=== PATIENT | female | born 1985 | race Caucasian/White ===

== ENCOUNTER 2016-06-01 10:54 | Emergency (ER) | payer MEDICAID ==
[2016-06-01 11:05] VITALS: BP 97/52
[2016-06-01 11:38] LABS: CHLORIDE,CL 102 mmol/L (101-111); SODIUM,NA 137 mmol/L (135-145)
--- NOTE | 2016-06-01 11:41 | EDM.PDOC ---
ED HISTORY OF PRESENT ILLNESS - General Chief Complaint: Respiratory Problem Stated Complaint: SICK/TROUBLE BREATHING Time Seen by Provider: 06/01/16 11:18 Source of Information: Reports: Patient History Limitations: Reports: No limitations - History of Present Illness INITIAL COMMENTS - FREE TEXT/NARRATIVE: This 30 yo female patient reports to the ED with a 2 day history of increased shortness of breath. The patient reports she has had a cold for since the past weekend, but her shortness of breath got worse since last night. The patient has not been seen in the clinic and has only take Dayquill with little to no symptom relief. 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) - Related Data Allergies/ADRs: Allergies Allergy/AdvReac Type Severity Reaction Status Date / Time No Known Allergies Allergy Verified 04/03/16 15:45 Home Meds: Home Meds ClonazePAM [KlonoPIN] 1 mg PO DAILY 03/23/14 [History] FLUoxetine [PROzac] 20 mg PO DAILY 03/23/14 [History] lamoTRIgine [Lamictal] 400 mg PO DAILY 03/23/14 [History] Zolpidem Tartrate [Ambien] 10 mg PO BEDTIME PRN 04/20/14 [History] Past Medical History HEENT History: Reports: None Cardiovascular History: Reports: None Respiratory History: Reports: Bronchitis, recurrent, Other (see below) Other Respiratory History: pneumonia Gastrointestinal History: Reports: None Genitourinary History: Reports: None 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 History: Reports: Fracture Neurological History: Reports: None Psychiatric History: Reports: Anxiety, Bipolar, Depression, PTSD, Suicidal ideation Endocrine/Metabolic History: Reports: Obesity/BMI 30+ Hematologic History: Reports: None Immunologic History: Reports: None Oncologic (Cancer) History: Reports: None Dermatologic History: Reports: None - Infectious Disease History Infectious Disease History: Reports: Other (see below) Other Infectious Disease History: "staph infection" - Past Surgical History HEENT Surgical History: Reports: Other (see below) Other HEENT Surgeries/Procedures: "nasal membranes shaved down", wisdom teeth removed Cardiovascular Surgical History: Reports: None GI Surgical History: Reports: None Female Surgical History: Reports: Other (see below) Other Female Surgeries/Procedures: IUD in place Social & Family History - Family History Family Medical History: Noncontributory - Tobacco Use Smoking Status *Q: Never Smoker Second Hand Smoke Exposure: Yes - Alcohol Use Days Per Week of Alcohol Use: 0 Number of Drinks Per Day: 7 Total Drinks Per Week: 0 - Recreational Drug Use Recreational Drug Use: No Drug Use in Last 12 Months: Yes Recreational Drug Type: Reports: Marijuana/Hashish Recreational Drug Use Frequency: Socially - Living Situation & Occupation Living situation: Reports: with significant other Occupation: employed ED ROS GENERAL - Review of Systems Review Of Systems: ROS reveals no pertinent complaints other than HPI. ED EXAM, GENERAL - Physical Exam Exam: See Below Exam Limited By: No limitations General Appearance: alert, WD/WN, mild distress, obese Eye Exam: bilateral eye: EOMI, normal inspection, PERRL Ears: normal external exam, normal canal, hearing grossly normal, normal TMs Nose: normal inspection, normal mucosa, no blood Throat/Mouth: Normal inspection, Normal lips, Normal teeth, Normal gums, Normal oropharynx, Normal voice, No airway compromise Head: atraumatic, normocephalic Neck: normal inspection, supple, non-tender, full range of motion Respiratory/Chest: no respiratory distress, lungs clear, normal breath sounds, no accessory muscle use, chest non-tender, other (intermittent cough) Cardiovascular: normal peripheral pulses, regular rate, rhythm, no edema, no gallop, no JVD, no murmur, no rub GI/Abdominal: normal bowel sounds, soft, non tender, no organomegaly, no distention, no abnormal bruit, no mass (Female) Exam: Deferred Rectal (Female) Exam: Deferred Back Exam: normal inspection, full range of motion, NT Extremities: normal inspection, normal range of motion, non-tender, normal capillary refill, no pedal edema Neurological: alert, oriented, CN II-XII intact, normal cognition, normal gait, normal reflexes, no motor/sensory deficits Psychiatric: normal affect, normal mood Skin Exam: Warm, Dry, Intact, Normal color, No rash Lymphatic: no adenopathy Course - Vital Signs Last Recorded V/S: Last Vital Signs Temp 35.9 C 03/23/17 11:04 Pulse 108 H 06/01/16 11:04 Resp 20 06/01/16 11:04 BP 97/52 L 06/01/16 11:04 Pulse Ox 99 06/01/16 11:04 - Orders/Labs/Meds Orders: Active Orders 24 hr Category Date Time Status Chest 2V [CR] Urgent Exams 06/01/16 11:34 Ordered CULTURE STREP A CONFIRMATION [RM] Stat Lab 06/01/16 11:06 Results STREP SCRN A RAPID W CULT CONF [RM] Stat Lab 06/01/16 11:06 Received Labs: Laboratory Tests 06/01/16 06/01/16 06/01/16 Range/Units 11:06 11:06 11:24 WBC 7.8 (5.0-10.0) 10^3/uL RBC 4.47 (4.2-5.4) 10^6/uL Hgb 13.5 (12.0-16.0) g/dL Hct 40.1 (37.0-47.0) % MCV 89.7 (80-100) fL MCH 30.2 (27.0-34.0) pg MCHC 33.7 (33.0-35.0) g/dL Plt Count 230 (150-450) 10^3/uL Neut % (Auto) 55.1 (42.2-75.2) % Lymph % (Auto) 34.8 (20.5-50.1) % [place] % (Auto) 5.9 (2-8) % Eos % (Auto) 4.1 H (1.0-3.0) % Baso % (Auto) 0.1 (0.0-1.0) % Sodium 137 (135-145) mmol/L Potassium 3.6 (3.6-5.0) mmol/L Chloride 102 (101-111) mmol/L Carbon Dioxide 26.0 (21.0-31.0) mmol/L Anion Gap 12.6 BUN 8 (7-18) mg/dL Creatinine 0.6 (0.6-1.3) mg/dL Est Cr Clr Drug Dosing 132.11 mL/min Estimated GFR (MDRD) > 60 BUN/Creatinine Ratio 13.33 Glucose 93 (74-105) mg/dL Calcium 8.5 (8.4-10.2) mg/dl Total Bilirubin 0.4 (0.2-1.0) mg/dL AST 16 (10-42) IU/L ALT 10 (10-60) IU/L Alkaline Phosphatase 44 (42-121) IU/L Total Protein 6.9 (6.7-8.2) g/dl Albumin 3.8 (3.2-5.5) g/dl Globulin 3.1 Albumin/Globulin Ratio 1.23 Urine Color (YELLOW) Urine Appearance (CLEAR) Urine pH (5.0-9.0) Ur Specific Orange (1.005-1.030) Urine Protein (NEGATIVE) Urine Glucose (UA) (NEGATIVE) Urine Ketones (NEGATIVE) Urine Occult Blood (NEGATIVE) Urine Nitrite (NEGATIVE) Urine Bilirubin (NEGATIVE) Urine Urobilinogen (0.2-1.0) mg/dL Ur Leukocyte Esterase (NEGATIVE) Urine RBC /HPF Urine WBC (0-5/HPF) /HPF Ur Epithelial Cells /HPF Urine Bacteria (0-FEW/HPF) /HPF Urine Mucus /LPF Urine HCG, Qual Urine Opiates Screen Negative (NEGATIVE) Ur Oxycodone Screen Negative (NEGATIVE) Urine Methadone Screen Negative (NEGATIVE) Ur Barbiturates Screen Negative (NEGATIVE) U Tricyclic Antidepress Negative (NEGATIVE) Ur Phencyclidine Scrn Negative (NEGATIVE) Ur Amphetamine Screen Negative (NEGATIVE) U Methamphetamines Scrn Negative (NEGATIVE) Urine MDMA Screen Negative (NEGATIVE) U Benzodiazepines Scrn Negative (NEGATIVE) Urine Cocaine Screen Negative (NEGATIVE) U Marijuana (THC) Screen Negative (NEGATIVE) 06/01/16 06/01/16 Range/Units 11:24 11:24 WBC (5.0-10.0) 10^3/uL RBC (4.2-5.4) 10^6/uL Hgb (12.0-16.0) g/dL Hct (37.0-47.0) % MCV (80-100) fL MCH (27.0-34.0) pg MCHC (33.0-35.0) g/dL Plt Count (150-450) 10^3/uL Neut % (Auto) (42.2-75.2) % Lymph % (Auto) (20.5-50.1) % [place] % (Auto) (2-8) % Eos % (Auto) (1.0-3.0) % Baso % (Auto) (0.0-1.0) % Sodium (135-145) mmol/L Potassium (3.6-5.0) mmol/L Chloride (101-111) mmol/L Carbon Dioxide (21.0-31.0) mmol/L Anion Gap BUN (7-18) mg/dL Creatinine (0.6-1.3) mg/dL Est Cr Clr Drug Dosing mL/min Estimated GFR (MDRD) BUN/Creatinine Ratio Glucose (74-105) mg/dL Calcium (8.4-10.2) mg/dl Total Bilirubin (0.2-1.0) mg/dL AST (10-42) IU/L ALT (10-60) IU/L Alkaline Phosphatase (42-121) IU/L Total Protein (6.7-8.2) g/dl Albumin (3.2-5.5) g/dl Globulin Albumin/Globulin Ratio Urine Color Dark yellow (YELLOW) Urine Appearance Slightly cloudy (CLEAR) Urine pH 5.5 (5.0-9.0) Ur Specific Orange >= 1.030 (1.005-1.030) Urine Protein Trace H (NEGATIVE) Urine Glucose (UA) Negative (NEGATIVE) Urine Ketones Negative (NEGATIVE) Urine Occult Blood Negative (NEGATIVE) Urine Nitrite Negative (NEGATIVE) Urine Bilirubin Small H (NEGATIVE) Urine Urobilinogen 0.2 (0.2-1.0) mg/dL Ur Leukocyte Esterase Trace H (NEGATIVE) Urine RBC 0-5 /HPF Urine WBC 20-30 H (0-5/HPF) /HPF Ur Epithelial Cells Few /HPF Urine Bacteria Many H (0-FEW/HPF) /HPF Urine Mucus Many H /LPF Urine HCG, Qual Negative Urine Opiates Screen (NEGATIVE) Ur Oxycodone Screen (NEGATIVE) Urine Methadone Screen (NEGATIVE) Ur Barbiturates Screen (NEGATIVE) U Tricyclic Antidepress (NEGATIVE) Ur Phencyclidine Scrn (NEGATIVE) Ur Amphetamine Screen (NEGATIVE) U Methamphetamines Scrn (NEGATIVE) Urine MDMA Screen (NEGATIVE) U Benzodiazepines Scrn (NEGATIVE) Urine Cocaine Screen (NEGATIVE) U Marijuana (THC) Screen (NEGATIVE) Departure - Departure Time of Disposition: 12:26 Disposition: Home, Self-Care 01 Condition: fair Clinical Impression: Viral bronchitis Instructions: Acute Bronchitis, [id number] Forms: ED Department Discharge Care Plan Goals: The patient was advised of the examination, lab and x-ray results during the visit. The patient was given a script for Tessalon Pearles (200 mg) #30 to take 1 by mouth 3 times per day. The patient may take [id number] medications for temporary symptom relief. If the patient has any additional symptoms or concerns, the patient should follow-up with her primary care facility or return to the emergency department. - My Orders Last 24 Hours: My Active Orders 06/01/16 11:06 CULTURE STREP A CONFIRMATION [RM] Stat STREP SCRN A RAPID W CULT CONF [RM] Stat 06/01/16 11:34 Chest 2V [CR] Urgent - Assessment/Plan Last 24 Hours: My Active Orders 06/01/16 11:06 CULTURE STREP A CONFIRMATION [RM] Stat STREP SCRN A RAPID W CULT CONF [RM] Stat 06/01/16 11:34 Chest 2V [CR] Urgent
--- NOTE | 2016-06-01 13:20 | CR ---
CLINICAL HISTORY: 30-year-old female with cough and shortness of breath. INTERPRETATION: Prominent proximal pulmonary artery segment and coarse accentuation perihilar lung m arkings suggesting bronchitis. Normal cardiac silhouette without alveolar edema or dependent effusion. Diana thorax unremarkable. No lung mass or focal lobar pneumonia. No atelectasis/collapse. No pneumothorax or air trapping. CONCLUSION: Mild bronchitis.
== END 2016-06-01 12:37 | disposition home or self-care (01) ==
LOC: DL.ED 10:54
DX: J20.8 Acute bronchitis due to other specified organisms (principal); B97.89 Other viral agents as the cause of diseases classified elsewhere; F41.9 Anxiety disorder, unspecified; F32.9 Major depressive disorder, single episode, unspecified; E66.9 Obesity, unspecified; Z87.01 Personal history of pneumonia (recurrent); Z79.899 Other long term (current) drug therapy
CPT/HCPCS: 36415; 71020; 80053; 80305; 81001; 81025; 85025; 87081; 87430; 87804; 99284

== ENCOUNTER 2016-08-13 15:23 | Emergency (ER) | payer MEDICAID ==
--- NOTE | 2016-08-13 15:25 | EDM.PDOC ---
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 Denies fever, chills, vaginal bleeding, passage of clots or trauma or contractions. Quality: Reports: Ache Severity: Moderate Improves with: Reports: None Worsens with: Reports: None Associated Symptoms: Reports: No Other Symptoms Abdomen Pain Score (Numeric/FACES): 0 - Related Data Allergies Allergy/AdvReac Type Severity Reaction Status Date / Time No Known Allergies Allergy Verified 08/13/16 15:26 Home Meds: Home Meds Folic Acid/Multivit-Min/Lutein [Therapeutic-M Tablet] 1 tab PO DAILY 08/13/16 [ History] Vit No.129/Iron/FA [ One Daily Tablet] 1 tab PO DAILY 08/13/16 [History] Past Medical History HEENT History: Reports: None Cardiovascular History: Reports: None Respiratory History: Reports: Bronchitis, Recurrent, Other (See Below) Other Respiratory History: pneumonia Gastrointestinal History: Reports: None Genitourinary History: Reports: None 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 History: Reports: Fracture Neurological History: Reports: None Psychiatric History: Reports: Anxiety, Bipolar, Depression, PTSD, Suicidal Ideation Endocrine/Metabolic History: Reports: Obesity/BMI 30+ Hematologic History: Reports: None Immunologic History: Reports: None Oncologic (Cancer) History: Reports: None Dermatologic History: Reports: None - Infectious Disease History Infectious Disease History: Reports: Other (See Below) Other Infectious Disease History: "staph infection" - Past Surgical History HEENT Surgical History: Reports: Other (See Below) Female Surgical History: Reports: Other (See Below) Social & Family History - Family History Family Medical History: Noncontributory - Tobacco Use Smoking Status *Q: Never Smoker Second Hand Smoke Exposure: Yes - Caffeine Use Caffeine Use: Reports: Coffee, Soda - Alcohol Use Days Per Week of Alcohol Use: 0 Number of Drinks Per Day: 7 Total Drinks Per Week: 0 - Recreational Drug Use Recreational Drug Use: No Drug Use in Last 12 Months: Yes Recreational Drug Type: Reports: Marijuana/Hashish Recreational Drug Use Frequency: Socially - Living Situation & Occupation Living situation: Reports: with Significant Other Occupation: Employed ED ROS GENERAL - Review of Systems Review Of Systems: ROS reveals no pertinent complaints other than HPI. ED EXAM - Physical Exam Exam: See Below Exam Limited By: No Limitations General Appearance: Alert, WD/WN, No Apparent Distress Head: Atraumatic, Normocephalic Respiratory/Chest: No Respiratory Distress, Lungs Clear, Normal Breath Sounds, No Accessory Muscle Use, Chest Non-Tender Cardiovascular: Normal Peripheral Pulses, Regular Rate, Rhythm, No Edema, No Gallop, No JVD, No Murmur, No Rub GI/Abdominal Exam: Normal Bowel Sounds, Soft, Non-Tender, No Organomegaly, No Distention, No Abnormal Bruit, No Mass, Pelvis Stable Rectal Exam: Deferred Back Exam: Normal Inspection, Full Range of Motion, NT Extremities: Normal Inspection, Normal Range of Motion, Non-Tender, Normal Capillary Refill, No Pedal Edema Neurological: Alert, Oriented, CN II-XII Intact, Normal Cognition, Normal Gait, Normal Reflexes, No Motor/Sensory Deficits Psychiatric: Normal Affect, Normal Mood Skin Exam: Warm, Dry, Intact, Normal Color, No Rash Lymphatic: No Adenopathy Course - Vital Signs Last Recorded V/S: Last Vital Signs Temp 36.3 C 08/13/16 15:29 Pulse 109 H 08/13/16 15:29 Resp 22 H 08/13/16 15:29 BP 129/73 08/13/16 15:29 Pulse Ox 97 08/13/16 15:29 - Orders/Labs/Meds Labs: Laboratory Tests 08/13/16 08/13/16 08/13/16 Range/Units 16:00 16:00 16:09 WBC 9.5 (5.0-10.0) 10^3/uL RBC 4.09 L (4.2-5.4) 10^6/uL Hgb 12.4 (12.0-16.0) g/dL Hct 35.8 L (37.0-47.0) % MCV 87.5 (80-100) fL MCH 30.3 (27.0-34.0) pg MCHC 34.6 (33.0-35.0) g/dL Plt Count 184 (150-450) 10^3/uL Neut % (Auto) 67.6 (42.2-75.2) % Lymph % (Auto) 26.1 (20.5-50.1) % [place] % (Auto) 5.7 (2-8) % Eos % (Auto) 0.5 L (1.0-3.0) % Baso % (Auto) 0.1 (0.0-1.0) % HCG, Quant > 1370 H (0-25) mIU/ml Beta HCG, Quant 18918 mIU/ml Urine Color Yellow (YELLOW) Urine Appearance Slightly cloudy (CLEAR) Urine pH 5.5 (5.0-9.0) Ur Specific [place] >= 1.030 (1.005-1.030) Urine Protein Negative (NEGATIVE) Urine Glucose (UA) Negative (NEGATIVE) Urine Ketones Negative (NEGATIVE) Urine Occult Blood Trace-intact H (NEGATIVE) Urine Nitrite Negative (NEGATIVE) Urine Bilirubin Negative (NEGATIVE) Urine Urobilinogen 0.2 (0.2-1.0) mg/dL Ur Leukocyte Esterase Negative (NEGATIVE) Urine RBC 0-5 /HPF Urine WBC 0-5 (0-5/HPF) /HPF Ur Epithelial Cells Moderate H /HPF Urine Bacteria Rare (0-FEW/HPF) /HPF Urine Mucus Many H /LPF Urine Other See note Meds: Medications Discontinued Medications Generic Name Dose Route Start Last Admin Trade Name Freq PRN Reason Stop Dose Admin Metronidazole 500 mg 08/13/16 17:05 08/13/16 17:13 Metronidazole PO 08/13/16 17:06 500 mg ONETIME ONE Administration Departure - Departure Time of Disposition: 17:05 Disposition: Home, Self-Care 01 Condition: Good Clinical Impression: Vaginal bleeding before 22 weeks gestation, Bacterial vaginosis - Discharge Information Instructions: Bacterial Vaginosis, [id number], Threatened Miscarriage Forms: ED Department Discharge Additional Instructions: RX: Flagyl 500mg. Follow up in clinic with your doctor if you have any further concerns. Return to return for heavy vaginal bleeding, severe pain, fever or development of new symptoms.
[2016-08-13 15:30] VITALS: BP 129/73
[2016-08-13] MEDS ORDERED: metroNIDAZOLE 250 MG Tab PO ONE (17:05)
== END 2016-08-13 17:22 | disposition home or self-care (01) ==
LOC: DL.ED 15:23
DX: O23.591 Infection of other part of genital tract in pregnancy, first trimester (principal); B96.89 Other specified bacterial agents as the cause of diseases classified elsewhere; O20.9 Hemorrhage in early pregnancy, unspecified; Z87.01 Personal history of pneumonia (recurrent); O99.211 Obesity complicating pregnancy, first trimester; E66.9 Obesity, unspecified; Z68.41 Body mass index [BMI] 40.0-44.9, adult; Z3A.13 13 weeks gestation of pregnancy
CPT/HCPCS: 36415; 81001; 84702; 85025; 99284; A9270

== ENCOUNTER 2016-10-23 10:44 | Emergency (ER) | payer MEDICAID ==
[2016-10-23 10:59] VITALS: BP 135/68
--- NOTE | 2016-10-23 11:11 | EDM.PDOC ---
ED HPI GENERAL MEDICAL PROBLEM - General Chief Complaint: Respiratory Problem Stated Complaint: [id number] SICK FOR A WEEK Time Seen by Provider: 10/23/16 11:00 Source of Information: Reports: Patient History Limitations: Reports: No Limitations - History of Present Illness INITIAL COMMENTS - FREE TEXT/NARRATIVE: This 30 yo female patient reports to the ED due to increased sickness over the past week. The patient reports she has been coughing a lot. The patient has been taking Tylenol and cough drops with no symptom relief. The patient reports she did not attempt to get into her primary care facility because it takes too long. The patient reports she has a history of bronchitis and pneumonia. The patient reports she is currently about 22 weeks into her and has not been feeling the baby move as much as prior to being sick. 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 Chest Pain Score (Numeric/FACES): 4 - Related Data Allergies Allergy/AdvReac Type Severity Reaction Status Date / Time No Known Allergies Allergy Verified 08/13/16 15:26 Home Meds: Home Meds Folic Acid/Multivit-Min/Lutein [Therapeutic-M Tablet] 1 tab PO DAILY 08/13/16 [ History] Vit No.129/Iron/FA [ One Daily Tablet] 1 tab PO DAILY 08/13/16 [History] Past Medical History HEENT History: Reports: None Cardiovascular History: Reports: None Respiratory History: Reports: Bronchitis, Recurrent, Other (See Below) Other Respiratory History: pneumonia Gastrointestinal History: Reports: None Genitourinary History: Reports: None 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 History: Reports: Fracture Other 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 History: ankle broken twice Neurological History: Reports: None Psychiatric History: Reports: Anxiety, Bipolar, Depression, PTSD, Suicidal Ideation Other Psychiatric History: borderline personality disorder Endocrine/Metabolic History: Reports: Obesity/BMI 30+ Hematologic History: Reports: None Immunologic History: Reports: None Oncologic (Cancer) History: Reports: None Dermatologic History: Reports: None - Infectious Disease History Infectious Disease History: Reports: Other (See Below) Other Infectious Disease History: "staph infection" - Past Surgical History HEENT Surgical History: Reports: Oral Surgery Other HEENT Surgeries/Procedures: wisdom teeth Female Surgical History: Reports: Other (See Below) Social & Family History - Family History Family Medical History: Noncontributory - Tobacco Use Smoking Status *Q: Never Smoker Second Hand Smoke Exposure: Yes - Caffeine Use Caffeine Use: Reports: Coffee, Soda - Alcohol Use Days Per Week of Alcohol Use: 0 Number of Drinks Per Day: 7 Total Drinks Per Week: 0 - Recreational Drug Use Recreational Drug Use: No Drug Use in Last 12 Months: Yes Recreational Drug Type: Reports: Marijuana/Hashish Recreational Drug Use Frequency: Socially - Living Situation & Occupation Living situation: Reports: with Significant Other Occupation: Employed ED ROS GENERAL - Review of Systems Review Of Systems: ROS reveals no pertinent complaints other than HPI. ED EXAM, GENERAL - Physical Exam Exam: See Below Exam Limited By: No Limitations General Appearance: Alert, WD/WN, Moderate Distress, Obese Eye Exam: Bilateral Eye: EOMI, Normal Inspection, PERRL Ears: Normal External Exam, Normal Canal, Hearing Grossly Normal, Normal TMs Nose: Normal Inspection, Normal Mucosa, No Blood Throat/Mouth: Normal Inspection, Normal Lips, Normal Teeth, Normal Gums, Normal Oropharynx, Normal Voice, No Airway Compromise Head: Atraumatic, Normocephalic Neck: Normal Inspection, Supple, Non-Tender, Full Range of Motion Respiratory/Chest: Normal Breath Sounds, No Accessory Muscle Use, Chest Non- Tender, Rhonchi (faint diffuse) Cardiovascular: Normal Peripheral Pulses, Regular Rate, Rhythm, No Edema, No Gallop, No JVD, No Murmur, No Rub GI/Abdominal: Normal Bowel Sounds, Soft, Non-Tender, No Organomegaly, No Distention, No Abnormal Bruit, No Mass (Female) Exam: Deferred Rectal (Female) Exam: Deferred Back Exam: Normal Inspection, Full Range of Motion, NT Extremities: Normal Inspection, Normal Range of Motion, Non-Tender, Normal Capillary Refill, No Pedal Edema Neurological: Alert, Oriented, CN II-XII Intact, Normal Cognition, Normal Gait, Normal Reflexes, No Motor/Sensory Deficits Psychiatric: Normal Affect, Anxious Skin Exam: Warm, Dry, Intact, Normal Color, No Rash Lymphatic: No Adenopathy Course - Vital Signs Last Recorded V/S: Last Vital Signs Temp 36.4 C 10/23/16 10:58 Pulse 109 H 10/23/16 10:58 Resp 16 10/23/16 10:58 BP 135/68 10/23/16 10:58 Pulse Ox 96 10/23/16 10:58 - Orders/Labs/Meds Labs: Laboratory Tests 10/23/16 10/23/16 Range/Units 11:16 11:16 WBC 14.5 H (5.0-10.0) 10^3/uL RBC 4.01 L (4.2-5.4) 10^6/uL Hgb 12.1 (12.0-16.0) g/dL Hct 36.2 L (37.0-47.0) % MCV 90.3 (80-100) fL MCH 30.2 (27.0-34.0) pg MCHC 33.4 (33.0-35.0) g/dL Plt Count 224 (150-450) 10^3/uL Neut % (Auto) 82.4 H (42.2-75.2) % Lymph % (Auto) 12.2 L (20.5-50.1) % [place] % (Auto) 4.1 (2-8) % Eos % (Auto) 1.2 (1.0-3.0) % Baso % (Auto) 0.1 (0.0-1.0) % Sodium 137 (135-145) mmol/L Potassium 3.7 (3.6-5.0) mmol/L Chloride 104 (101-111) mmol/L Carbon Dioxide 23.0 (21.0-31.0) mmol/L Anion Gap 13.7 BUN 5 L (7-18) mg/dL Creatinine 0.4 L (0.6-1.3) mg/dL Est Cr Clr Drug Dosing TNP Estimated GFR (MDRD) > 60 BUN/Creatinine Ratio 12.50 Glucose 92 (74-105) mg/dL Calcium 8.7 (8.4-10.2) mg/dl Total Bilirubin 0.4 (0.2-1.0) mg/dL AST 16 (10-42) IU/L ALT 13 (10-60) IU/L Alkaline Phosphatase 70 (42-121) IU/L Total Protein 6.5 L (6.7-8.2) g/dl Albumin 3.0 L (3.2-5.5) g/dl Globulin 3.5 Albumin/Globulin Ratio 0.86 Meds: Medications Discontinued Medications Generic Name Dose Route Start Last Admin Trade Name Ilene PRN Reason Stop Dose Admin Ceftriaxone Sodium 1 gm/ 0 gm 10/23/16 11:49 10/23/16 12:02 Lidocaine HCl 2.1 ml IM 10/23/16 11:50 2.2 inj ONETIME ONE Administration Departure - Departure Time of Disposition: 12:05 Disposition: Home, Self-Care 01 Condition: Fair Clinical Impression: Bronchitis - Discharge Information Instructions: Acute Bronchitis, [id number] Forms: ED Department Discharge Care Plan Goals: The patient was advised of the examination and lab results during the visit. The patient was given an injection of Rocephin while in the ED. The patient was discharged with a script for Omnicef (300 mg) #14 to take 1 by mouth 2 times per day for 7 days. If the patient has any additional symptoms or concerns, the patient should follow-up with her primary care facility or return to the emergency department.
[2016-10-23 11:42] LABS: CHLORIDE,CL 104 mmol/L (101-111); SODIUM,NA 137 mmol/L (135-145)
[2016-10-23] MEDS ORDERED: cefTRIAXone 1 GM, Lidocaine 1% 2.1 ML IM ONE ×2 (11:49)
== END 2016-10-23 12:15 | disposition home or self-care (01) ==
LOC: DL.ED 10:44
DX: J40 Bronchitis, not specified as acute or chronic (principal); Z87.01 Personal history of pneumonia (recurrent); E66.9 Obesity, unspecified; Z98.890 Other specified postprocedural states; Z79.899 Other long term (current) drug therapy
CPT/HCPCS: 36415; 80053; 85025; 96372; 99284; J0696

== ENCOUNTER 2017-02-16 10:31 | Inpatient (IN) | payer MEDICAID ==
[2017-02-16] MEDS ORDERED: hydrOXYzine HCl 25 MG Tab PO ONE (13:15)
[2017-02-16] MEDS ORDERED: Penicillin G Potassium 5 MILLUNITS in Sodium Chloride 0.9% 100 ML IV ONE (15:44)
[2017-02-16] MEDS: Lactated Ringers 1,000 ML IV SCH ×3 (16:05→21:46)
[2017-02-16] MEDS ORDERED: Ondansetron 4 MG/2 ML SDV IV PRN (17:33)
[2017-02-16] MEDS ORDERED: Sodium Chloride 0.9% 10 ML Syringe FLUSH PRN (17:33)
[2017-02-16] MEDS ORDERED: Acetaminophen 325 MG Tab PO PRN ×2 (17:33→18:43)
[2017-02-16] MEDS ORDERED: Nalbuphine 20 MG/1 ML Amp IVPUSH ONE (17:33)
[2017-02-16] MEDS ORDERED: Butorphanol 2 MG/ML SDV IM ONE (17:33)
[2017-02-16] MEDS ORDERED: Lactated Ringers 1,000 ML IV SCH (17:45)
[2017-02-16] MEDS ORDERED: Oxytocin/Normal Saline 30 UNIT/500 ML BAG IV SCH ×2 (17:45)
[2017-02-16] MEDS ORDERED: Butorphanol 2 MG/ML SDV IM PRN (18:37)
[2017-02-16] MEDS ORDERED: Lidocaine 1% 30 ML SDV INJECT PRN (18:43)
[2017-02-16] MEDS ORDERED: Misoprostol 400 MCG (4 X 100 MCG TAB) RECTAL PRN (18:43)
[2017-02-16] MEDS ORDERED: Methylergonovine 0.2 MG/1 ML Amp IM PRN (18:43)
[2017-02-16] MEDS ORDERED: Carboprost Tromethamine 250 MCG/1 ML Amp IM PRN (18:43)
[2017-02-16] MEDS: Penicillin G Potassium 3 MILLUNITS in Sodium Chloride 0.9% 100 ML IV SCH ×2 (19:45→23:38)
--- NOTE | 2017-02-16 21:37 | PCM.PNLD ---
Labor Progress Note - VS & Meds Vital Signs: Last Vital Signs Temp 98.1 F 02/16/17 16:00 Pulse 75 02/16/17 19:00 Resp 16 02/16/17 19:00 BP 118/67 02/16/17 19:00 Pulse Ox Active Medications: Current Medications Acetaminophen (Tylenol) 650 mg PO Q4H PRN PRN Reason: Pain/Fever Acetaminophen (Tylenol) 650 mg PO Q4H PRN PRN Reason: Pain (Mild 1-3) and fever Butorphanol Tartrate (Stadol) 2 mg IM Q1H PRN PRN Reason: Pain Carboprost Tromethamine (Hemabate Ds) 250 mcg IM ASDIRECTED PRN PRN Reason: HEMORRHAGE Penicillin G Potassium 3 (millunits/ Sodium Chloride) 100 mls @ 200 mls/hr IV Q4H EFREN Last Admin: 02/16/17 19:45 Dose: 200 mls/hr Lactated Ringer's (Ringers, Lactated) 1,000 mls @ 125 mls/hr IV ASDIRECTED EFREN Last Admin: 02/16/17 19:40 Dose: 125 mls/hr Lactated Ringer's (Ringers, Lactated) 1,000 mls @ 125 mls/hr IV ASDIRECTED EFREN Oxytocin/Sodium Chloride (Pitocin In Ns 30 Unit/500 Ml) 30 unit in 500 mls @ 2 mls/hr IV TITRATE EFREN; 2 MUNITS/MIN PRN Reason: Protocol Last Titration: 02/16/17 20:56 Dose: 6 munits/min, 6 mls/hr Oxytocin/Sodium Chloride (Pitocin In Ns 30 Unit/500 Ml) 30 unit in 500 mls @ 2 mls/hr IV TITRATE EFREN; 2 MUNITS/MIN PRN Reason: Protocol Lidocaine HCl (Xylocaine-Mpf 1%) 10 ml INJECT ASDIRECTED PRN PRN Reason: Perineal Repair Methylergonovine Maleate (Methergine) 0.2 mg IM ASDIRECTED PRN PRN Reason: Hemorrhage Misoprostol (Cytotec) 800 mcg RECTAL ASDIRECTED PRN PRN Reason: Hemorrhage Ondansetron HCl (Zofran) 4 mg IV Q4H PRN PRN Reason: Nausea/Vomiting Prenat Multivit/[place]/Iron/Folic Ac ( Plus Iron) 1 each PO DAILY EFERN Sodium Chloride (Saline Flush) 10 ml FLUSH ASDIRECTED PRN PRN Reason: Keep Vein Open Discontinued Medications Butorphanol Tartrate (Stadol) 2 mg IM ONETIME ONE Stop: 02/16/17 17:34 Last Admin: 02/16/17 18:38 Dose: Not Given Hydroxyzine HCl (Atarax) 50 mg PO ONETIME ONE Stop: 02/16/17 13:16 Last Admin: 02/16/17 13:41 Dose: 50 mg Penicillin G Potassium 5 (millunits/ Sodium Chloride) 100 mls @ 200 mls/hr IV ONETIME ONE Stop: 02/16/17 16:13 Last Admin: 02/16/17 16:10 Dose: 200 mls/hr Nalbuphine HCl (Nubain) 10 mg IVPUSH ONETIME ONE Stop: 02/16/17 17:34 - Uterine Contractions Uterine Monitoring Mode: External [place] Contraction Frequency (min): 2-6 Contraction Duration (sec): 60-120 Contraction Intensity: Moderate to Strong Uterine Resting Tone: Soft - Monitoring Monitor Mode: External Ultrasound Heart Rate (FHR) Baseline: 140 Heart Rate (FHR) Variability: Moderate (6-25 bmp) Accelerations: Present, 15x15 Decelerations: Early Strip Review: Category I - Vaginal Exam Dilation (cm): 5 Effacement (Percent): 90 Station: -2 Cervical Position: Midposition Sterile Vaginal Exam Performed By: Álvaro Jhaveri - Labor Progress (Free Text) Labor Progress: Patient getting very uncomfortable. No fever or chills. She desires a intrathecal. She is 4-5 cm/90%/-2. Pitocin augmentation. Early decels with acel's noted.
[2017-02-16] MEDS ORDERED: EPINEPHrine 1 MG/ML SDV ONE (21:45)
[2017-02-16] MEDS ORDERED: fentaNYL 100 MCG/2 ML SDV ONE (21:46)
--- NOTE | 2017-02-16 23:05 | HP ---
CHIEF COMPLAINT: "I think I am in labor." HISTORY OF PRESENT ILLNESS: Ms. Castro is a 31-year-old, 1, para 0 female, last menstrual period 05/11/2016, EDC 02/15/2017, EGA 40 and 1/7 weeks' gestation, who reports to [facility] with complaints of increasing force and frequency of contractions. She also complains of some nausea, which she has had throughout the entire . She denies any vomiting or diarrhea. No fever or chills. No hematochezia, hematemesis, or hematuria. No dysuria, frequency, or urgency with urination. No leg pain or leg edema. She does have some lower back discomfort with her contractions, and she states the contractions get stronger and more uncomfortable. On admission, she was approximately 4 cm dilated and with her being 40 and 1/7 weeks' gestation, and her estimated weight last week of 8 pounds 9 ounces. It was decided that we would bring her in early labor, and she is group B strep positive, so she is getting penicillin G IV for group B strep prophylaxis protocol, and the plan will be since she is sole about every 5 to 6 minutes to start Pitocin augmentation and artificial rupture of membranes once she gets her second dose of steroids. She states the has only been complicated with her nausea, and the group B strep being positive. Other than that, she has done quite well. PAST MEDICAL HISTORY: Hx of OCD, Bipolar disorder, anxiety, depression, and headaches. No history of anemia, asthma, cancer, diabetes, hypertension, heart disease, seizure disorder, thromboembolic disease, breast lesions, transfusions, or thyroid disease. FAMILY HISTORY: Positive for hypertension, Stroke, Heart disease, lung cancer, hypercholesterolnemiaand arthritis. No family history of diabetes or seizure disorders. PAST SURGICAL HISTORY: She has nasal surgery age 13 and wisdom tooth extraction at age 20. SOCIAL HISTORY: She has a fiance, Jean Claude. They live in [place] with two children. She denies any tobacco use, alcohol use, or illicit drug use. ALLERGIES: No known drug allergies. MEDICATIONS: vitamin. REVIEW OF SYSTEMS: All pertinent positives and negatives review of systems discussed with the patient. Besides what is in the HPI, she has no issues. A 10-point review of systems is discussed with the patient. LABORATORY DATA: Blood type A positive. Antibody screen negative. Rubella nonimmune. RPR nonreactive. Hepatitis B surface antigen nonreactive. HIV nonreactive. Hepatitis C antibody nonreactive. Group B strep vaginal culture positive. Passed 3 hr Glucose tolerance test. OBJECTIVE: General: Well-developed, well-nourished female in distress whenever she has a contraction. HEENT: Unremarkable. Neck: Supple without adenopathy. No thyromegaly. Lungs: Clear auscultation. No wheezing, rhonchi, or rales noted. Cardiovascular regular rate and rhythm without murmurs. Abdomen: Gravid. Fundal height at 41 cm. heart tones in the 130s to 140s, reactive strip, category 1 strip. Contractions every 5 to 6 minutes apart with no decelerations. Positive accelerations noted. EFW: 4,100 grams. Back: No CVA tenderness. Genitourinary: Cervix 4 cm dilated, 80% effaced, -2 station, mid position and soft. Extremities: No edema, erythema, or tenderness noted. ASSESSMENT: 1. A 40 and 1/7 week intrauterine . 2. Early labor. 3. Exogenous obesity. 4. Group B strep vaginal culture positive. PLAN: 1. The patient admitted in early labor. 2. Pitocin augmentation to be begun. 3. Penicillin G IV given for group B strep prophylaxis. After second dose, we will augment labor with artificial rupture of membranes unless spontaneous rupture of membranes occurs first. 4. We discussed with the patient the labor activities and medications to be given as needed for pain control. 5. We discussed intrathecal anesthesia. 6. We discussed that if all goes well, we are expecting a normal vaginal delivery, but if there are any issues with the fetus or maternal issues, a section could also possibly be accomplished if need be. She understands this all. 7. All of her questions were answered. [facility] /[id number] DRE
[2017-02-17] MEDS: Lactated Ringers 1,000 ML IV SCH ×3 (03:06→18:18)
--- NOTE | 2017-02-17 03:24 | PCM.PNLD ---
Labor Progress Note - VS & Meds Vital Signs: Last Vital Signs Temp 98.1 F 02/16/17 16:00 Pulse 79 02/16/17 20:00 Resp 20 02/16/17 20:00 BP 147/78 H 02/16/17 20:00 Pulse Ox Active Medications: Current Medications Acetaminophen (Tylenol) 650 mg PO Q4H PRN PRN Reason: Pain/Fever Acetaminophen (Tylenol) 650 mg PO Q4H PRN PRN Reason: Pain (Mild 1-3) and fever Butorphanol Tartrate (Stadol) 2 mg IM Q1H PRN PRN Reason: Pain Carboprost Tromethamine (Hemabate Ds) 250 mcg IM ASDIRECTED PRN PRN Reason: HEMORRHAGE Penicillin G Potassium 3 (millunits/ Sodium Chloride) 100 mls @ 200 mls/hr IV Q4H EFREN Last Admin: 02/16/17 23:38 Dose: 200 mls/hr Lactated Ringer's (Ringers, Lactated) 1,000 mls @ 125 mls/hr IV ASDIRECTED EFREN Last Admin: 02/17/17 03:06 Dose: 125 mls/hr Lactated Ringer's (Ringers, Lactated) 1,000 mls @ 125 mls/hr IV ASDIRECTED EFREN Oxytocin/Sodium Chloride (Pitocin In Ns 30 Unit/500 Ml) 30 unit in 500 mls @ 2 mls/hr IV TITRATE EFREN; 2 MUNITS/MIN PRN Reason: Protocol Last Titration: 02/17/17 00:38 Dose: 14 mls/hr Oxytocin/Sodium Chloride (Pitocin In Ns 30 Unit/500 Ml) 30 unit in 500 mls @ 2 mls/hr IV TITRATE EFREN; 2 MUNITS/MIN PRN Reason: Protocol Lidocaine HCl (Xylocaine-Mpf 1%) 10 ml INJECT ASDIRECTED PRN PRN Reason: Perineal Repair Methylergonovine Maleate (Methergine) 0.2 mg IM ASDIRECTED PRN PRN Reason: Hemorrhage Misoprostol (Cytotec) 800 mcg RECTAL ASDIRECTED PRN PRN Reason: Hemorrhage Ondansetron HCl (Zofran) 4 mg IV Q4H PRN PRN Reason: Nausea/Vomiting Prenat Multivit/[place]/Iron/Folic Ac ( Plus Iron) 1 each PO DAILY EFREN Sodium Chloride (Saline Flush) 10 ml FLUSH ASDIRECTED PRN PRN Reason: Keep Vein Open Discontinued Medications Butorphanol Tartrate (Stadol) 2 mg IM ONETIME ONE Stop: 02/16/17 17:34 Last Admin: 02/16/17 18:38 Dose: Not Given Epinephrine HCl (Adrenalin 1:1000) Confirm Administered Dose 1 mg .ROUTE .STK- MED ONE Stop: 02/16/17 21:46 Fentanyl (Sublimaze) Confirm Administered Dose 100 mcg .ROUTE .STK-MED ONE Stop: 02/16/17 21:47 Hydroxyzine HCl (Atarax) 50 mg PO ONETIME ONE Stop: 02/16/17 13:16 Last Admin: 02/16/17 13:41 Dose: 50 mg Penicillin G Potassium 5 (millunits/ Sodium Chloride) 100 mls @ 200 mls/hr IV ONETIME ONE Stop: 02/16/17 16:13 Last Admin: 02/16/17 16:10 Dose: 200 mls/hr Nalbuphine HCl (Nubain) 10 mg IVPUSH ONETIME ONE Stop: 02/16/17 17:34 Sufentanil Citrate (Sufenta) Confirm Administered Dose 50 mcg .ROUTE .STK-MED ONE Stop: 02/16/17 21:46 - Uterine Contractions Uterine Monitoring Mode: IUPC Contraction Frequency (min): 2-3 Contraction Duration (sec): 60-120 Contraction Intensity: Strong Uterine Resting Tone: Soft - Monitoring Monitor Mode: Spiral Electrode Heart Rate (FHR) Baseline: 140 Heart Rate (FHR) Variability: Moderate (6-25 bmp) Accelerations: Present, 15x15 Decelerations: Early, Variable Strip Review: Category I - Vaginal Exam Dilation (cm): 5 Effacement (Percent): 90 Station: -2 Cervical Position: Midposition Sterile Vaginal Exam Performed By: Álvaro Jhaveri - Labor Progress (Free Text) Labor Progress: Patients intrathecal wore off and is very uncomfortable. She is very tense and cannot relax. IUPC and FSE placed. Her baseline is between 25-38 on the IUPC. She is 7 cm/90%/-1 + Caput. Pitocin was turned off. Once new Intrathecal is placed if baseline is still high will remove the IUPC and use external [place]. She has had a couple late decel's but majority are early with some variables. Position change, Fluid bolus and Oxygen has been given. Will watch closely and see if cervical change and descent occurs.
[2017-02-17] MEDS ORDERED: fentaNYL 100 MCG/2 ML SDV ONE (03:44)
[2017-02-17] MEDS ORDERED: EPINEPHrine 1 MG/ML SDV ONE (03:44)
--- NOTE | 2017-02-17 04:26 | PCM.PNLD ---
Labor Progress Note - VS & Meds Vital Signs: Last Vital Signs Temp 98.1 F 02/16/17 16:00 Pulse 79 02/16/17 20:00 Resp 20 02/16/17 20:00 BP 147/78 H 02/16/17 20:00 Pulse Ox Active Medications: Current Medications Acetaminophen (Tylenol) 650 mg PO Q4H PRN PRN Reason: Pain/Fever Acetaminophen (Tylenol) 650 mg PO Q4H PRN PRN Reason: Pain (Mild 1-3) and fever Butorphanol Tartrate (Stadol) 2 mg IM Q1H PRN PRN Reason: Pain Carboprost Tromethamine (Hemabate Ds) 250 mcg IM ASDIRECTED PRN PRN Reason: HEMORRHAGE Penicillin G Potassium 3 (millunits/ Sodium Chloride) 100 mls @ 200 mls/hr IV Q4H EFREN Last Admin: 02/16/17 23:38 Dose: 200 mls/hr Lactated Ringer's (Ringers, Lactated) 1,000 mls @ 125 mls/hr IV ASDIRECTED EFREN Last Admin: 02/17/17 03:06 Dose: 125 mls/hr Lactated Ringer's (Ringers, Lactated) 1,000 mls @ 125 mls/hr IV ASDIRECTED EFREN Oxytocin/Sodium Chloride (Pitocin In Ns 30 Unit/500 Ml) 30 unit in 500 mls @ 2 mls/hr IV TITRATE EFREN; 2 MUNITS/MIN PRN Reason: Protocol Last Titration: 02/17/17 00:38 Dose: 14 mls/hr Oxytocin/Sodium Chloride (Pitocin In Ns 30 Unit/500 Ml) 30 unit in 500 mls @ 2 mls/hr IV TITRATE EFREN; 2 MUNITS/MIN PRN Reason: Protocol Lidocaine HCl (Xylocaine-Mpf 1%) 10 ml INJECT ASDIRECTED PRN PRN Reason: Perineal Repair Methylergonovine Maleate (Methergine) 0.2 mg IM ASDIRECTED PRN PRN Reason: Hemorrhage Misoprostol (Cytotec) 800 mcg RECTAL ASDIRECTED PRN PRN Reason: Hemorrhage Ondansetron HCl (Zofran) 4 mg IV Q4H PRN PRN Reason: Nausea/Vomiting Prenat Multivit/[place]/Iron/Folic Ac ( Plus Iron) 1 each PO DAILY EFREN Sodium Chloride (Saline Flush) 10 ml FLUSH ASDIRECTED PRN PRN Reason: Keep Vein Open Discontinued Medications Butorphanol Tartrate (Stadol) 2 mg IM ONETIME ONE Stop: 02/16/17 17:34 Last Admin: 02/16/17 18:38 Dose: Not Given Epinephrine HCl (Adrenalin 1:1000) Confirm Administered Dose 1 mg .ROUTE .STK- MED ONE Stop: 02/16/17 21:46 Epinephrine HCl (Adrenalin 1:1000) Confirm Administered Dose 1 mg .ROUTE .STK- MED ONE Stop: 02/17/17 03:45 Fentanyl (Sublimaze) Confirm Administered Dose 100 mcg .ROUTE .STK-MED ONE Stop: 02/16/17 21:47 Fentanyl (Sublimaze) Confirm Administered Dose 100 mcg .ROUTE .STK-MED ONE Stop: 02/17/17 03:45 Hydroxyzine HCl (Atarax) 50 mg PO ONETIME ONE Stop: 02/16/17 13:16 Last Admin: 02/16/17 13:41 Dose: 50 mg Penicillin G Potassium 5 (millunits/ Sodium Chloride) 100 mls @ 200 mls/hr IV ONETIME ONE Stop: 02/16/17 16:13 Last Admin: 02/16/17 16:10 Dose: 200 mls/hr Nalbuphine HCl (Nubain) 10 mg IVPUSH ONETIME ONE Stop: 02/16/17 17:34 Sufentanil Citrate (Sufenta) Confirm Administered Dose 50 mcg .ROUTE .STK-MED ONE Stop: 02/16/17 21:46 Sufentanil Citrate (Sufenta) Confirm Administered Dose 50 mcg .ROUTE .STK-MED ONE Stop: 02/17/17 03:45 - Uterine Contractions Uterine Monitoring Mode: IUPC Contraction Frequency (min): 2-3 Contraction Duration (sec): 60-120 Contraction Intensity: Moderate to Strong Uterine Resting Tone: Soft - Monitoring Monitor Mode: Spiral Electrode Heart Rate (FHR) Baseline: 140 Heart Rate (FHR) Variability: Moderate (6-25 bmp) Accelerations: Present, 15x15 Decelerations: Early, Variable Strip Review: Category I - Vaginal Exam Dilation (cm): 7 Effacement (Percent): 90 Station: -2 Cervical Position: Midposition Sterile Vaginal Exam Performed By: Álvaro Jhaveri - Labor Progress (Free Text) Labor Progress: Patient comfortable with Epidural. Cerivx is 7 cm/90%/-2 Large caput. If no oil change technician the next 2 hours with no descent will then do a section. The patient and significant other understand the plan all questions answered. Will start Pitocin again if contractions start spacing out. t
--- NOTE | 2017-02-17 04:26 | PCM.PRNOTE ---
- Free Text/Narrative Note: From 02/16/17 2150 - 2220: Requested to provide analgesia to full term patient in severe pain. Upon entering the room, patient is lying on left side complaining of severe abdominal pain and discomfort. Procedure was discussed with patient including adverse outcomes and expectations. Pt consented to analgesia, SAB/IT. Pt placed into a sitting position. Landmarks for SAB/IT were identified and marked. Back was prepped with betadine x3. A sterile, transparent, fenestrated drape was applied. Excess betadine was removed. Using 3 mL of a 1% lidocaine solution, a skin wheel was placed at the L3/L4 interspace. A 24 ga (4 inch) Pencan spinal needle was inserted until positive for CSF. Negative for heme or paresthesias. Injected fentanyl 20 mcg, sufentanil 10 mcg, and 12 mg of a 0.75% bupivacaine solution with an epi wash. Pt was placed left lateral position for approximately 20 minutes. There were zero complications or adverse outcomes. Will continue to monitor.
--- NOTE | 2017-02-17 04:28 | PCM.PRNOTE ---
- Free Text/Narrative Note: Called back, requested to provide second analgesia to full term patient in severe pain. Upon entering the room, patient is thrashing around in bed, complaining of severe abdominal pain and discomfort. Procedure was quickly discussed with patient including adverse outcomes and expectations. Pt consented to analgesia, SAB/IT. Pt placed into a sitting position. Landmarks for SAB/IT were identified and marked. Back was prepped with betadine x3. A sterile, transparent, fenestrated drape was applied. Excess betadine was removed. Using 3 mL of a 1% lidocaine solution, a skin wheel was placed at the L3/L4 interspace. A 24 ga (4 inch) Pencan spinal needle was inserted until positive for CSF. Negative for heme or paresthesias. Injected fentanyl 20 mcg , sufentanil 10 mcg, and 12 mg of a 0.75% bupivacaine solution with an epi wash. Pt was placed left lateral position for approximately 20 minutes. There were zero complications or adverse outcomes. Will continue to monitor.
[2017-02-17] MEDS: Penicillin G Potassium 3 MILLUNITS in Sodium Chloride 0.9% 100 ML IV SCH ×3 (04:32→13:34)
[2017-02-17] MEDS ORDERED: diphenhydrAMINE 50 MG/ML SDV IVPUSH PRN (06:56)
[2017-02-17] MEDS ORDERED: ePHEDrine 50 MG/ML SDV IVPUSH PRN (06:56)
[2017-02-17] MEDS ORDERED: Carboprost Tromethamine 250 MCG/1 ML Amp IM ONE (06:56)
[2017-02-17] MEDS ORDERED: Naloxone 2 MG/2 ML Syringe IVPUSH PRN (06:56)
[2017-02-17] MEDS ORDERED: Acetaminophen 325 MG Tab PO PRN (06:56)
[2017-02-17] MEDS ORDERED: Zolpidem 5 MG Tab PO PRN (06:56)
[2017-02-17] MEDS ORDERED: Methylergonovine 0.2 MG/1 ML Amp IM PRN (06:56)
[2017-02-17] MEDS ORDERED: diphenhydrAMINE 50 MG/ML SDV IV PRN (06:56)
[2017-02-17] MEDS ORDERED: Misoprostol 400 MCG (4 X 100 MCG TAB) RECTAL PRN (06:56)
[2017-02-17] MEDS ORDERED: Sodium Chloride 0.9% 10 ML Syringe FLUSH PRN (06:56)
[2017-02-17] MEDS ORDERED: Acetaminophen/oxyCODONE 325-5 MG Tab PO PRN (06:56)
[2017-02-17] MEDS ORDERED: Measles, Mumps & Rubella Vaccine 0.5 ML SDV SUBCUT ONE (06:56)
[2017-02-17] MEDS ORDERED: Ondansetron 4 MG/2 ML SDV IV PRN (06:56)
[2017-02-17] MEDS ORDERED: Morphine PF 1 MG/ML Amp ONE (07:11)
--- NOTE | 2017-02-17 07:16 | PCM.PNLD ---
Labor Progress Note - VS & Meds Vital Signs: Last Vital Signs Temp 97.5 F 02/16/17 21:06 Pulse 82 02/16/17 21:12 Resp 16 02/16/17 20:15 BP 150/92 H 02/16/17 21:12 Pulse Ox Active Medications: Current Medications Acetaminophen (Tylenol) 650 mg PO Q4H PRN PRN Reason: Pain/Fever Acetaminophen (Tylenol) 650 mg PO Q4H PRN PRN Reason: Pain (Mild 1-3) and fever Butorphanol Tartrate (Stadol) 2 mg IM Q1H PRN PRN Reason: Pain Carboprost Tromethamine (Hemabate Ds) 250 mcg IM ASDIRECTED PRN PRN Reason: HEMORRHAGE Penicillin G Potassium 3 (millunits/ Sodium Chloride) 100 mls @ 200 mls/hr IV Q4H EFREN Last Admin: 02/17/17 04:32 Dose: 200 mls/hr Lactated Ringer's (Ringers, Lactated) 1,000 mls @ 125 mls/hr IV ASDIRECTED EFREN Last Admin: 02/17/17 05:48 Dose: 125 mls/hr Lactated Ringer's (Ringers, Lactated) 1,000 mls @ 125 mls/hr IV ASDIRECTED EFREN Oxytocin/Sodium Chloride (Pitocin In Ns 30 Unit/500 Ml) 30 unit in 500 mls @ 2 mls/hr IV TITRATE EFREN; 2 MUNITS/MIN PRN Reason: Protocol Last Titration: 02/17/17 06:05 Dose: 6 mls/hr Oxytocin/Sodium Chloride (Pitocin In Ns 30 Unit/500 Ml) 30 unit in 500 mls @ 2 mls/hr IV TITRATE EFREN; 2 MUNITS/MIN PRN Reason: Protocol Cefazolin Sodium/Dextrose 3 gm (/ Premix) 75 mls @ 100 mls/hr IV ONETIME ONE Stop: 02/17/17 07:17 Lidocaine HCl (Xylocaine-Mpf 1%) 10 ml INJECT ASDIRECTED PRN PRN Reason: Perineal Repair Methylergonovine Maleate (Methergine) 0.2 mg IM ASDIRECTED PRN PRN Reason: Hemorrhage Misoprostol (Cytotec) 800 mcg RECTAL ASDIRECTED PRN PRN Reason: Hemorrhage Ondansetron HCl (Zofran) 4 mg IV Q4H PRN PRN Reason: Nausea/Vomiting Prenat Multivit/[place]/Iron/Folic Ac ( Plus Iron) 1 each PO DAILY EFREN Sodium Chloride (Saline Flush) 10 ml FLUSH ASDIRECTED PRN PRN Reason: Keep Vein Open Discontinued Medications Butorphanol Tartrate (Stadol) 2 mg IM ONETIME ONE Stop: 02/16/17 17:34 Last Admin: 02/16/17 18:38 Dose: Not Given Citric Acid/Sodium Citrate (Bicitra Solution) 30 ml PO ONETIME ONE Stop: 02/17/17 06:49 Epinephrine HCl (Adrenalin 1:1000) Confirm Administered Dose 1 mg .ROUTE .STK- MED ONE Stop: 02/16/17 21:46 Epinephrine HCl (Adrenalin 1:1000) Confirm Administered Dose 1 mg .ROUTE .STK- MED ONE Stop: 02/17/17 03:45 Fentanyl (Sublimaze) Confirm Administered Dose 100 mcg .ROUTE .STK-MED ONE Stop: 02/16/17 21:47 Fentanyl (Sublimaze) Confirm Administered Dose 100 mcg .ROUTE .STK-MED ONE Stop: 02/17/17 03:45 Hydroxyzine HCl (Atarax) 50 mg PO ONETIME ONE Stop: 02/16/17 13:16 Last Admin: 02/16/17 13:41 Dose: 50 mg Penicillin G Potassium 5 (millunits/ Sodium Chloride) 100 mls @ 200 mls/hr IV ONETIME ONE Stop: 02/16/17 16:13 Last Admin: 02/16/17 16:10 Dose: 200 mls/hr Nalbuphine HCl (Nubain) 10 mg IVPUSH ONETIME ONE Stop: 02/16/17 17:34 Sufentanil Citrate (Sufenta) Confirm Administered Dose 50 mcg .ROUTE .STK-MED ONE Stop: 02/16/17 21:46 Sufentanil Citrate (Sufenta) Confirm Administered Dose 50 mcg .ROUTE .STK-MED ONE Stop: 02/17/17 03:45 - Uterine Contractions Uterine Monitoring Mode: IU Contraction Frequency (min): 2-3 Contraction Duration (sec): 60-120 Contraction Intensity: Moderate to Strong Uterine Resting Tone: Soft - Monitoring Monitor Mode: Spiral Electrode Heart Rate (FHR) Baseline: 140 Heart Rate (FHR) Variability: Moderate (6-25 bmp) Accelerations: Present, 15x15 Decelerations: Variable Strip Review: Category I - Vaginal Exam Dilation (cm): 7.5 Effacement (Percent): 80 swollen Station: -2 Cervical Position: Midposition Sterile Vaginal Exam Performed By: Álvaro Jhaveri - Labor Progress (Free Text) Labor Progress: Patient is getting more uncomfortable. She feels pressure. Cervix 7.5/80%swollen/-2 Large amount of Caput. Good variability + Acels. Some variable decel's. Pt is afebrile VSS. No nausea, vomiting or diarrhea. With no descent of head and minimal exchange consultant the past 6 hours we will do a Primary section. The risks, benefits and complication of the procedure was discussed. Including infection, bleeding, injury to bowel, bladder, and the .
[2017-02-17] MEDS ORDERED: Oxytocin/Normal Saline 60 UNIT/1,000 ML BAG ONE (07:19)
[2017-02-17] MEDS: Citric Acid/Sodium Citrate Solution 30 ML Cup PO ONE ×2 (07:35→15:18)
[2017-02-17] MEDS: Prenatal Multivitamin with Calcium/Folic Acid/Iron Tab PO SCH (13:33)
[2017-02-17] MEDS: Ferrous Sulfate 325 MG Tab PO SCH (13:33)
--- NOTE | 2017-02-17 13:38 | OR ---
DATE: 02/17/2017 PREOPERATIVE DIAGNOSES: 1. A 40 and 2/7 week intrauterine . 2. Early labor. 3. Pitocin augmentation. 4. Artificial rupture of membranes. 5. Exogenous obesity. 6. Group B streptococcus vaginal culture positive. 7. Arrest of descent. 8. Arrest of dilatation. POSTOPERATIVE DIAGNOSES: 1. A 40 and 2/7 week intrauterine . 2. Early labor. 3. Pitocin augmentation. 4. Artificial rupture of membranes. 5. Exogenous obesity. 6. Group B streptococcus vaginal culture positive. 7. Arrest of descent. 8. Arrest of dilatation. 9. Delivery of a macrosomic viable male infant weighing 9 pounds, 20 inches long with scores of 9 at one minute and 9 at five minutes. PROCEDURE: Primary low transverse section via Pfannenstiel skin incision. CREPING MACHINE OPERATOR HELPER: Dio Hernandez MD COMPLICATIONS: None. FLUIDS: Crystalloids/LR. ESTIMATED BLOOD LOSS: 800 mL. DRAINS: Moser catheter. PATHOLOGY: None. ANESTHESIA: Spinal anesthesia with Duramorph. FINDINGS: Normal uterus, tubes, and ovaries. Viable male infant weighing 9 pounds, 20 inches long, with scores of 9 at one minute and 9 at five minutes. INDICATIONS FOR DELIVERY: Ms. Castro is a 31-year-old, 1, para 0, female at 40 and 1/7 weeks' gestation who reported to Labor and Delivery 4 cm dilated. She was sole every 3 to 6 minutes. She was admitted and Pitocin augmentation was started since she was group B strep positive. She was given penicillin G IV. She had 2 doses and artificial rupture of membranes occurred with clear fluid. She tolerated her labor quite well until she got uncomfortable, and at that point, she was 5 cm dilated, so an intrathecal anesthesia was placed. The fetus did quite well throughout the labor process. There were some early decelerations with some variables and occasional late deceleration occurred, but we took care of that by changing physicians, IV fluid bolus, and oxygenation. The 1st intrathecal wore off and then she did get to 7 cm dilation and a 2nd intrathecal was placed. For approximately 6 hours, the patient had no change from 7 to about 7-1/2 cm, -2 station. There was no descent of the head below this with adequate contractions and much of the daily units that were over 200 to 250 range. It was then decided that a primary section should be performed for arrest of descent, arrest of dilatation. DESCRIPTION OF PROCEDURE: The patient was taken to the operating room with an IV running. She was placed supine on the operating table. After adequate spinal anesthesia with Duramorph was obtained, she was prepped and draped in usual sterile fashion in the dorsal supine position with a leftward tilt. A Pfannenstiel skin incision was then made. This was carried down the fascia with care. The fascia was nicked in the midline, extended laterally. Fascia was taken off the rectus muscles superiorly and inferiorly. The rectus muscles were in the midline. Peritoneal cavity entered. An Vu O-ring retractor was then placed, then a low-transverse incision in the uterus was then accomplished. This was extended laterally. The 's head was then brought through the incision as well as rest of the . The cord was clamped and cut. The infant's nose and mouth were suctioned. The was taken over to the warmer with the nurses in excellent condition. Cord blood was obtained. The placenta was then delivered by simple expression intact. The uterus was then cleared of all clots and debris. The uterus was then closed in a double layer closure using a #1 Vicryl suture in a running, locked fashion. Excellent hemostasis was noted. The peritoneal cavity was irrigated with sterile water. Excellent hemostasis was noted. The Vu O-ring retractor was then removed, and the gutters were cleared of all clot and debris. The incision was re- inspected and noted to be dry. At this point, the rectus muscles and peritoneum were re-approximated with 0 chromic suture in a running, nonlocked fashion. Excellent hemostasis was noted. The fascia was then re-approximated with 0 PDS suture in a running, nonlocked fashion. Excellent hemostasis was noted. Subcutaneous tissue was irrigated warm sterile water. It was noted to be hemostatic. The subcutaneous tissue which was very thick, was re-approximated with 3-0 plain gut suture. The skin was re-approximated with 3-0 Monocryl suture in a running subcuticular fashion. Dermabond was placed as the dressing. The patient tolerated the procedure quite well. There was clear yellow urine noted to emanate from the Moser catheter throughout the entire procedure. The patient received 3 g of Ancef IV before the procedure. The patient received 20 units of Pitocin IV after the placenta was delivered. All sponges, needle, and instrument counts were correct by the nurse in attendance x2. The patient was taken to PACU in awake and stable condition. [facility] /[id number]
[2017-02-17] MEDS: Ketorolac 30 MG/ML SDV IVPUSH SCH ×3 (15:14→22:00)
[2017-02-17] MEDS: Docusate Sodium 100 MG Cap PO PRN (21:58)
[2017-02-17] MEDS: Simethicone 80 MG Tab.Chew PO PRN (21:59)
[2017-02-18] MEDS: Lactated Ringers 1,000 ML IV SCH (02:10)
[2017-02-18] MEDS: Ketorolac 30 MG/ML SDV IVPUSH SCH (03:33)
[2017-02-18] MEDS: Ferrous Sulfate 325 MG Tab PO SCH (09:44)
[2017-02-18] MEDS: Prenatal Multivitamin with Calcium/Folic Acid/Iron Tab PO SCH (09:44)
[2017-02-18] MEDS: Simethicone 80 MG Tab.Chew PO PRN ×2 (09:44→14:22)
[2017-02-18] MEDS: Docusate Sodium 100 MG Cap PO PRN (09:44)
[2017-02-18] MEDS: Acetaminophen/oxyCODONE 325-5 MG Tab PO PRN ×3 (09:45→22:24)
--- NOTE | 2017-02-18 10:01 | PCM.PNPP ---
- General Info Date of Service: 02/18/17 (POD/PPD # 1 S/P LTC/S) Functional Status: Reports: Pain Controlled, Tolerating Diet, Ambulating, Urinating - Review of Systems General: Reports: No Symptoms HEENT: Reports: No Symptoms Pulmonary: Reports: No Symptoms Cardiovascular: Reports: No Symptoms Gastrointestinal: Reports: No Symptoms Genitourinary: Reports: No Symptoms 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: Reports: No Symptoms Skin: Reports: No Symptoms Neurological: Reports: No Symptoms Psychiatric: Reports: No Symptoms - General Info Date of Service: 02/18/17 (POD/PPD # 1 S/P LTC/S) - Patient Data Vital Signs - Most Recent: Last Vital Signs Temp 97.8 F 02/18/17 05:00 Pulse 83 02/18/17 05:00 Resp 14 02/18/17 05:00 BP 113/64 02/18/17 05:00 Pulse Ox 98 02/18/17 05:00 Weight - Most Recent: 316 lb I&O - Last 24 Hours: Intake & Output 02/17/17 02/18/17 02/18/17 22:59 06:59 14:59 Intake Total 2050 2150 Output Total 350 550 Balance 1700 1600 Lab Results - Last 24 Hours: Laboratory Results - last 24 hr 02/18/17 Range/Units 06:20 WBC 10.4 H (5.0-10.0) 10^3/uL RBC 3.44 L (4.2-5.4) 10^6/uL Hgb 9.9 L D (12.0-16.0) g/dL Hct 30.9 L (37.0-47.0) % MCV 89.8 (80-100) fL MCH 28.8 (27.0-34.0) pg MCHC 32.0 L (33.0-35.0) g/dL Plt Count 174 (150-450) 10^3/uL Med Orders - Current: Current Medications Acetaminophen (Tylenol) 650 mg PO Q6H PRN PRN Reason: mild pain or fever Butorphanol Tartrate (Stadol) 2 mg IM Q1H PRN PRN Reason: Pain Carboprost Tromethamine (Hemabate Ds) 250 mcg IM ASDIRECTED PRN PRN Reason: HEMORRHAGE Diphenhydramine HCl (Benadryl) 25 mg IV Q4H PRN PRN Reason: Itching Docusate Sodium (Colace) 100 mg PO Q12H PRN PRN Reason: Constipation Last Admin: 02/18/17 09:44 Dose: 100 mg Ephedrine Sulfate (Ephedrine Sulfate) 5 mg IVPUSH SEECOMMENT PRN PRN Reason: Other Ferrous Sulfate (Ferrous Sulfate) 325 mg PO BRK EFREN Last Admin: 02/18/17 09:44 Dose: 325 mg Oxytocin/Sodium Chloride (Pitocin In Ns 30 Unit/500 Ml) 30 unit in 500 mls @ 2 mls/hr IV TITRATE EFREN; 2 MUNITS/MIN PRN Reason: Protocol Last Titration: 02/17/17 06:44 Dose: 0 mls/hr Oxytocin/Sodium Chloride (Pitocin In Ns 30 Unit/500 Ml) 30 unit in 500 mls @ 2 mls/hr IV TITRATE EFREN; 2 MUNITS/MIN PRN Reason: Protocol Last Titration: 02/17/17 12:00 Dose: 0 munits/min, 0 mls/hr Lactated Ringer's (Ringers, Lactated) 1,000 mls @ 125 mls/hr IV ASDIRECTED EFREN Last Admin: 02/18/17 02:10 Dose: 125 mls/hr Ibuprofen (Motrin) 800 mg PO Q8H PRN PRN Reason: mild pain or fever Lidocaine HCl (Xylocaine-Mpf 1%) 10 ml INJECT ASDIRECTED PRN PRN Reason: Perineal Repair Methylergonovine Maleate (Methergine) 0.2 mg IM ASDIRECTED PRN PRN Reason: Hemorrhage Methylergonovine Maleate (Methergine) 0.2 mg IM ONETIME PRN PRN Reason: Excessive Vaginal Bleeding Misoprostol (Cytotec) 800 mcg RECTAL ASDIRECTED PRN PRN Reason: Bleeding Naloxone HCl (Narcan) 0.1 mg IVPUSH SEECOMMENT PRN PRN Reason: Respiratory Depression Ondansetron HCl (Zofran) 4 mg IV Q4H PRN PRN Reason: Nausea/Vomiting Oxycodone/Acetaminophen (Percocet 325-5 Mg) 1 tab PO Q4H PRN PRN Reason: Pain (moderate 4-6) Oxycodone/Acetaminophen (Percocet 325-5 Mg) 2 tab PO Q4H PRN PRN Reason: Pain (moderate 4-6) Last Admin: 02/18/17 09:45 Dose: 2 tab Prenat Multivit/Cook Seafood/Iron/Folic Ac ( Plus Iron) 1 each PO DAILY EFREN Last Admin: 02/18/17 09:44 Dose: 1 each Simethicone (Simethicone) 80 mg PO Q4H PRN PRN Reason: Gas Last Admin: 02/18/17 09:44 Dose: 80 mg Sodium Chloride (Saline Flush) 10 ml FLUSH ASDIRECTED PRN PRN Reason: Keep Vein Open Zolpidem Tartrate (Ambien) 5 mg PO BEDTIME PRN PRN Reason: Insomnia Discontinued Medications Acetaminophen (Tylenol) 650 mg PO Q4H PRN PRN Reason: Pain/Fever Acetaminophen (Tylenol) 650 mg PO Q4H PRN PRN Reason: Pain (Mild 1-3) and fever Butorphanol Tartrate (Stadol) 2 mg IM ONETIME ONE Stop: 02/16/17 17:34 Last Admin: 02/16/17 18:38 Dose: Not Given Carboprost Tromethamine (Hemabate Ds) 250 mcg IM ONETIME ONE Stop: 02/17/17 06:57 Last Admin: 02/17/17 13:32 Dose: Not Given Citric Acid/Sodium Citrate (Bicitra Solution) 30 ml PO ONETIME ONE Stop: 02/17/17 06:49 Last Admin: 02/17/17 15:18 Dose: Not Given Diphenhydramine HCl (Benadryl) 25 mg IVPUSH Q6H PRN PRN Reason: Itching or Nausea Epinephrine HCl (Adrenalin 1:1000) Confirm Administered Dose 1 mg .ROUTE .STK- MED ONE Stop: 02/16/17 21:46 Last Admin: 02/17/17 11:17 Dose: Not Given Epinephrine HCl (Adrenalin 1:1000) Confirm Administered Dose 1 mg .ROUTE .STK- MED ONE Stop: 02/17/17 03:45 Last Admin: 02/17/17 11:17 Dose: Not Given Fentanyl (Sublimaze) Confirm Administered Dose 100 mcg .ROUTE .STK-MED ONE Stop: 02/16/17 21:47 Last Admin: 02/17/17 11:17 Dose: Not Given Fentanyl (Sublimaze) Confirm Administered Dose 100 mcg .ROUTE .STK-MED ONE Stop: 02/17/17 03:45 Last Admin: 02/17/17 11:17 Dose: Not Given Hydroxyzine HCl (Atarax) 50 mg PO ONETIME ONE Stop: 02/16/17 13:16 Last Admin: 02/16/17 13:41 Dose: 50 mg Penicillin G Potassium 5 (millunits/ Sodium Chloride) 100 mls @ 200 mls/hr IV ONETIME ONE Stop: 02/16/17 16:13 Last Admin: 02/16/17 16:10 Dose: 200 mls/hr Penicillin G Potassium 3 (millunits/ Sodium Chloride) 100 mls @ 200 mls/hr IV Q4H [facility] Last Admin: 02/17/17 13:34 Dose: Not Given Lactated Ringer's (Ringers, Lactated) 1,000 mls @ 125 mls/hr IV ASDIRECTED [facility] Last Admin: 02/17/17 05:48 Dose: 125 mls/hr Lactated Ringer's (Ringers, Lactated) 1,000 mls @ 125 mls/hr IV ASDIRECTED [facility] Cefazolin Sodium/Dextrose 3 gm (/ Premix) 75 mls @ 100 mls/hr IV ONETIME ONE Stop: 02/17/17 07:17 Last Admin: 02/17/17 07:39 Dose: 100 mls/hr Oxytocin/Sodium Chloride (Pitocin In Ns 30 Unit/500 Ml) Confirm Administered Dose 60 unit in 1,000 mls @ as directed .ROUTE .STK-MED ONE Stop: 02/17/17 07:20 Cefazolin Sodium/Dextrose (Ancef) Confirm Administered Dose 50 mls @ as directed .ROUTE .STK-MED ONE Stop: 02/17/17 08:20 Ketorolac Tromethamine (Toradol) 15 mg IVPUSH Q6H [facility] Stop: 02/17/17 19:01 Last Admin: 02/17/17 15:40 Dose: Not Given Ketorolac Tromethamine (Toradol) 15 mg IVPUSH Q6H [facility] Stop: 02/18/17 03:01 Last Admin: 02/18/17 03:33 Dose: 15 mg Measles/Mumps/Rubella Vaccine Live (M-M-R Ii Vaccine) 0.5 ml SUBCUT .ONCE ONE Stop: 02/17/17 06:57 Misoprostol (Cytotec) 800 mcg RECTAL ASDIRECTED PRN PRN Reason: Hemorrhage Morphine Sulfate (Duramorph Pf) Confirm Administered Dose 1 mg .ROUTE .STK-MED ONE Stop: 02/17/17 07:12 Nalbuphine HCl (Nubain) 10 mg IVPUSH ONETIME ONE Stop: 02/16/17 17:34 Last Admin: 02/17/17 15:03 Dose: Not Given Ondansetron HCl (Zofran) 4 mg IV Q4H PRN PRN Reason: Nausea/Vomiting Sodium Chloride (Saline Flush) 10 ml FLUSH ASDIRECTED PRN PRN Reason: Keep Vein Open Sufentanil Citrate (Sufenta) Confirm Administered Dose 50 mcg .ROUTE .STK-MED ONE Stop: 02/16/17 21:46 Last Admin: 02/17/17 11:17 Dose: Not Given Sufentanil Citrate (Sufenta) Confirm Administered Dose 50 mcg .ROUTE .STK-MED ONE Stop: 02/17/17 03:45 Last Admin: 02/17/17 11:18 Dose: Not Given - Infant Interaction Disposition, : [place] in Room with Family Interaction: Holding Infant Feeding: Breastfed ; Nursed Well Support Person: Significant Other - Recovery Exam Fundal Tone: Firm Fundal Level: At Umbilicus Fundal Placement: Midline Lochia Amount: Scant Lochia Color: Rubra/Red Perineum Description: Intact, Minimal Bruising/Swelling Episiotomy/Laceration: None Urinary Elimination: Not Voiding - Exam General: Alert, Oriented, Cooperative, No Acute Distress HEENT: Pupils Equal, Pupils Reactive, Mucous Membr. Moist/Patrick Neck: Supple Lungs: Clear to Auscultation, Normal Respiratory Effort Cardiovascular: Regular Rate, Regular Rhythm GI/Abdominal Exam: Normal Bowel Sounds, Soft, Non-Tender Extremities: Normal Inspection, Normal Range of Motion, Non-Tender Skin: Warm, Dry, Intact Wound/Incisions: Healing Well, Dressing Dry and Intact, No Drainage Neurological: No New Focal Deficit, Normal Gait, Normal Speech Psy/Mental Status: Alert, Normal Affect, Normal Mood - Problem List Review Problem List Initiated/Reviewed/Updated: Yes - My Orders Last 24 Hours: My Active Orders 02/17/17 09:00 Vit with Ca/FA/Iron [ Plus Iron] 1 each PO DAILY 02/17/17 Dinner Nothing Per Oral Diet [DIET] 02/17/17 Lunch Nothing Per Oral Diet [DIET] Regular Diet [DIET] 02/18/17 11:00 Ibuprofen [Motrin] 800 mg PO Q8H PRN - Assessment Assessment:: POD/PPD # 1 S/P LTC/S Doing well Acute anemia secondary to blood loss. - Plan Plan:: Increase ambulation Increase fluids FeSO4 1tab BID po
[2017-02-18] MEDS: Ibuprofen 800 MG Tab PO PRN ×2 (11:54→19:27)
--- NOTE | 2017-02-19 03:31 | PCM.PNPP ---
- General Info Date of Service: 02/19/17 (PPD/POD#2 S/P LTC/S) Functional Status: Reports: Pain Controlled - Review of Systems General: Reports: No Symptoms HEENT: Reports: No Symptoms Pulmonary: Reports: No Symptoms Cardiovascular: Reports: No Symptoms Gastrointestinal: Reports: No Symptoms Genitourinary: Reports: No Symptoms 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: Reports: No Symptoms Skin: Reports: No Symptoms Neurological: Reports: No Symptoms Psychiatric: Reports: No Symptoms - General Info Date of Service: 02/19/17 (PPD/POD # 2 S/P LTC/S) - Patient Data Vital Signs - Most Recent: Last Vital Signs Temp 97.9 F 02/19/17 00:00 Pulse 82 02/19/17 00:00 Resp 18 02/19/17 00:00 BP 110/75 02/19/17 00:00 Pulse Ox 99 02/19/17 00:00 Weight - Most Recent: 316 lb I&O - Last 24 Hours: Intake & Output 02/18/17 02/18/17 02/19/17 14:59 22:59 06:59 Intake Total 1200 200 Output Total 1000 Balance 200 200 Lab Results - Last 24 Hours: Laboratory Results - last 24 hr 02/18/17 Range/Units 06:20 WBC 10.4 H (5.0-10.0) 10^3/uL RBC 3.44 L (4.2-5.4) 10^6/uL Hgb 9.9 L D (12.0-16.0) g/dL Hct 30.9 L (37.0-47.0) % MCV 89.8 (80-100) fL MCH 28.8 (27.0-34.0) pg MCHC 32.0 L (33.0-35.0) g/dL Plt Count 174 (150-450) 10^3/uL Med Orders - Current: Current Medications Acetaminophen (Tylenol) 650 mg PO Q6H PRN PRN Reason: mild pain or fever Butorphanol Tartrate (Stadol) 2 mg IM Q1H PRN PRN Reason: Pain Carboprost Tromethamine (Hemabate Ds) 250 mcg IM ASDIRECTED PRN PRN Reason: HEMORRHAGE Diphenhydramine HCl (Benadryl) 25 mg IV Q4H PRN PRN Reason: Itching Docusate Sodium (Colace) 100 mg PO Q12H PRN PRN Reason: Constipation Last Admin: 02/18/17 09:44 Dose: 100 mg Ephedrine Sulfate (Ephedrine Sulfate) 5 mg IVPUSH SEECOMMENT PRN PRN Reason: Other Ferrous Sulfate (Ferrous Sulfate) 325 mg PO BRK EFREN Last Admin: 02/18/17 09:44 Dose: 325 mg Oxytocin/Sodium Chloride (Pitocin In Ns 30 Unit/500 Ml) 30 unit in 500 mls @ 2 mls/hr IV TITRATE EFREN; 2 MUNITS/MIN PRN Reason: Protocol Last Titration: 02/17/17 06:44 Dose: 0 mls/hr Oxytocin/Sodium Chloride (Pitocin In Ns 30 Unit/500 Ml) 30 unit in 500 mls @ 2 mls/hr IV TITRATE EFREN; 2 MUNITS/MIN PRN Reason: Protocol Last Titration: 02/17/17 12:00 Dose: 0 munits/min, 0 mls/hr Lactated Ringer's (Ringers, Lactated) 1,000 mls @ 125 mls/hr IV ASDIRECTED EFREN Last Admin: 02/18/17 02:10 Dose: 125 mls/hr Ibuprofen (Motrin) 800 mg PO Q8H PRN PRN Reason: mild pain or fever Last Admin: 02/18/17 19:27 Dose: 800 mg Lidocaine HCl (Xylocaine-Mpf 1%) 10 ml INJECT ASDIRECTED PRN PRN Reason: Perineal Repair Methylergonovine Maleate (Methergine) 0.2 mg IM ASDIRECTED PRN PRN Reason: Hemorrhage Methylergonovine Maleate (Methergine) 0.2 mg IM ONETIME PRN PRN Reason: Excessive Vaginal Bleeding Misoprostol (Cytotec) 800 mcg RECTAL ASDIRECTED PRN PRN Reason: Bleeding Naloxone HCl (Narcan) 0.1 mg IVPUSH SEECOMMENT PRN PRN Reason: Respiratory Depression Ondansetron HCl (Zofran) 4 mg IV Q4H PRN PRN Reason: Nausea/Vomiting Oxycodone/Acetaminophen (Percocet 325-5 Mg) 1 tab PO Q4H PRN PRN Reason: Pain (moderate 4-6) Oxycodone/Acetaminophen (Percocet 325-5 Mg) 2 tab PO Q4H PRN PRN Reason: Pain (moderate 4-6) Last Admin: 02/18/17 22:24 Dose: 2 tab Prenat Multivit/Claude/Iron/Folic Ac ( Plus Iron) 1 each PO DAILY EFREN Last Admin: 02/18/17 09:44 Dose: 1 each Simethicone (Simethicone) 80 mg PO Q4H PRN PRN Reason: Gas Last Admin: 02/18/17 14:22 Dose: 80 mg Sodium Chloride (Saline Flush) 10 ml FLUSH ASDIRECTED PRN PRN Reason: Keep Vein Open Zolpidem Tartrate (Ambien) 5 mg PO BEDTIME PRN PRN Reason: Insomnia Discontinued Medications Acetaminophen (Tylenol) 650 mg PO Q4H PRN PRN Reason: Pain/Fever Acetaminophen (Tylenol) 650 mg PO Q4H PRN PRN Reason: Pain (Mild 1-3) and fever Butorphanol Tartrate (Stadol) 2 mg IM ONETIME ONE Stop: 02/16/17 17:34 Last Admin: 02/16/17 18:38 Dose: Not Given Carboprost Tromethamine (Hemabate Ds) 250 mcg IM ONETIME ONE Stop: 02/17/17 06:57 Last Admin: 02/17/17 13:32 Dose: Not Given Citric Acid/Sodium Citrate (Bicitra Solution) 30 ml PO ONETIME ONE Stop: 02/17/17 06:49 Last Admin: 02/17/17 15:18 Dose: Not Given Diphenhydramine HCl (Benadryl) 25 mg IVPUSH Q6H PRN PRN Reason: Itching or Nausea Epinephrine HCl (Adrenalin 1:1000) Confirm Administered Dose 1 mg .ROUTE .STK- MED ONE Stop: 02/16/17 21:46 Last Admin: 02/17/17 11:17 Dose: Not Given Epinephrine HCl (Adrenalin 1:1000) Confirm Administered Dose 1 mg .ROUTE .STK- MED ONE Stop: 02/17/17 03:45 Last Admin: 02/17/17 11:17 Dose: Not Given Fentanyl (Sublimaze) Confirm Administered Dose 100 mcg .ROUTE .STK-MED ONE Stop: 02/16/17 21:47 Last Admin: 02/17/17 11:17 Dose: Not Given Fentanyl (Sublimaze) Confirm Administered Dose 100 mcg .ROUTE .STK-MED ONE Stop: 02/17/17 03:45 Last Admin: 02/17/17 11:17 Dose: Not Given Hydroxyzine HCl (Atarax) 50 mg PO ONETIME ONE Stop: 02/16/17 13:16 Last Admin: 02/16/17 13:41 Dose: 50 mg Penicillin G Potassium 5 (millunits/ Sodium Chloride) 100 mls @ 200 mls/hr IV ONETIME ONE Stop: 02/16/17 16:13 Last Admin: 02/16/17 16:10 Dose: 200 mls/hr Penicillin G Potassium 3 (millunits/ Sodium Chloride) 100 mls @ 200 mls/hr IV Q4H [facility] Last Admin: 02/17/17 13:34 Dose: Not Given Lactated Ringer's (Ringers, Lactated) 1,000 mls @ 125 mls/hr IV ASDIRECTED [facility] Last Admin: 02/17/17 05:48 Dose: 125 mls/hr Lactated Ringer's (Ringers, Lactated) 1,000 mls @ 125 mls/hr IV ASDIRECTED [facility] Cefazolin Sodium/Dextrose 3 gm (/ Premix) 75 mls @ 100 mls/hr IV ONETIME ONE Stop: 02/17/17 07:17 Last Admin: 02/17/17 07:39 Dose: 100 mls/hr Oxytocin/Sodium Chloride (Pitocin In Ns 30 Unit/500 Ml) Confirm Administered Dose 60 unit in 1,000 mls @ as directed .ROUTE .STK-MED ONE Stop: 02/17/17 07:20 Cefazolin Sodium/Dextrose (Ancef) Confirm Administered Dose 50 mls @ as directed .ROUTE .STK-MED ONE Stop: 02/17/17 08:20 Ketorolac Tromethamine (Toradol) 15 mg IVPUSH Q6H [facility] Stop: 02/17/17 19:01 Last Admin: 02/17/17 15:40 Dose: Not Given Ketorolac Tromethamine (Toradol) 15 mg IVPUSH Q6H [facility] Stop: 02/18/17 03:01 Last Admin: 02/18/17 03:33 Dose: 15 mg Measles/Mumps/Rubella Vaccine Live (M-M-R Ii Vaccine) 0.5 ml SUBCUT .ONCE ONE Stop: 02/17/17 06:57 Last Admin: 02/18/17 14:24 Dose: 0.5 ml Misoprostol (Cytotec) 800 mcg RECTAL ASDIRECTED PRN PRN Reason: Hemorrhage Morphine Sulfate (Duramorph Pf) Confirm Administered Dose 1 mg .ROUTE .STK-MED ONE Stop: 02/17/17 07:12 Nalbuphine HCl (Nubain) 10 mg IVPUSH ONETIME ONE Stop: 02/16/17 17:34 Last Admin: 02/17/17 15:03 Dose: Not Given Ondansetron HCl (Zofran) 4 mg IV Q4H PRN PRN Reason: Nausea/Vomiting Sodium Chloride (Saline Flush) 10 ml FLUSH ASDIRECTED PRN PRN Reason: Keep Vein Open Sufentanil Citrate (Sufenta) Confirm Administered Dose 50 mcg .ROUTE .STK-MED ONE Stop: 02/16/17 21:46 Last Admin: 02/17/17 11:17 Dose: Not Given Sufentanil Citrate (Sufenta) Confirm Administered Dose 50 mcg .ROUTE .STK-MED ONE Stop: 02/17/17 03:45 Last Admin: 02/17/17 11:18 Dose: Not Given - Interaction Infant Disposition, : in Room with Family Infant Interaction: Holding Feeding: Breastfed ; Nursed Well Support Person: Significant Other - Recovery Exam Fundal Tone: Firm Fundal Level: At Umbilicus Fundal Placement: Midline Lochia Amount: Scant Lochia Color: Rubra/Red Perineum Description: Intact, Minimal Bruising/Swelling Episiotomy/Laceration: None Bladder Status: Indwelling Catheter in Place Urinary Elimination: Not Voiding - Exam General: Alert, Oriented, Cooperative, No Acute Distress HEENT: Pupils Equal, Pupils Reactive Neck: Supple Lungs: Clear to Auscultation, Normal Respiratory Effort Cardiovascular: Regular Rate, Regular Rhythm GI/Abdominal Exam: Normal Bowel Sounds, Soft, Non-Tender, No Distention Extremities: Normal Inspection, Normal Range of Motion, Non-Tender, No Pedal Edema Skin: Warm, Dry, Intact Wound/Incisions: Healing Well, Dressing Dry and Intact, No Drainage Neurological: No New Focal Deficit, Normal Gait, Normal Speech Psy/Mental Status: Alert, Normal Affect, Normal Mood - Problem List Review Problem List Initiated/Reviewed/Updated: Yes - My Orders Last 24 Hours: My Active Orders 02/18/17 11:00 Ibuprofen [Motrin] 800 mg PO Q8H PRN 02/19/17 03:22 Ready for Discharge [RC] PER UNIT ROUTINE - Assessment Assessment:: POD/PPD # 2 S/P LTC/S Doing well - Plan Plan:: Patient desires discharge to home. Follow-up with Dr. Tovar for wound recheck and baby check. 6 week follow-up visit. Motrin/Percocet for pain control. Breast pump Rx given. All questions answered.
[2017-02-19] MEDS: Docusate Sodium 100 MG Cap PO PRN (06:06)
[2017-02-19] MEDS: Acetaminophen/oxyCODONE 325-5 MG Tab PO PRN ×2 (06:06→14:50)
[2017-02-19] MEDS: Prenatal Multivitamin with Calcium/Folic Acid/Iron Tab PO SCH (09:54)
[2017-02-19] MEDS: Ferrous Sulfate 325 MG Tab PO SCH (09:54)
[2017-02-19] MEDS: Ibuprofen 800 MG Tab PO PRN (09:54)
[2017-02-19] MEDS: Simethicone 80 MG Tab.Chew PO PRN ×2 (09:54→14:49)
[2017-02-19 15:07] VITALS: BP 131/83
[2017-02-19] MEDS ORDERED: Ketorolac 30 MG/ML SDV IVPUSH ONE (15:14)
[2017-02-19] MEDS ORDERED: Oxytocin/Normal Saline 30 UNIT/500 ML BAG IV ONE (15:14)
[2017-02-19] MEDS ORDERED: fentaNYL 100 MCG/2 ML SDV ITHECAL ONE (15:14)
[2017-02-19] MEDS ORDERED: EPINEPHrine 1 MG/ML SDV IV ONE (15:14)
[2017-02-19] MEDS ORDERED: Morphine PF 1 MG/ML Amp ONE (15:14)
[2017-02-19] MEDS ORDERED: Lactated Ringers 1,000 ML IV ONE (15:14)
--- NOTE | 2017-02-19 22:50 | DISCH ---
INDICATION FOR ADMISSION: Ms. Castro is a 31-year-old 1, para 0 female who reported to Labor and Delivery at [facility] with increasing force and frequency of contractions. On admission, she was noted to be 4 cm dilated, and she was in early labor, group B strep positive, sole every 5 to 6 minutes, so she was admitted and started on Pitocin augmentation. Once she got her second dose of antibiotics, artificial rupture of membranes occurred. She tolerated her labor quite well. She ended up getting 2 intrathecal injections for pain control and did get to 7.5 cm but that was as far as she got. She stayed between 7 to 7.5 cm and a -2 station for over 6 hours despite adequate [place] units over 200, so a section was called for arrest of descent, arrest of dilatation. She underwent a primary low transverse section via Pfannenstiel skin incision, which she tolerated quite well. She had delivery of a viable male , weighing 9 pounds 20 inches long with scores of 9 at 1 minute, 9 at 5 minutes. She went from the operating room to recovery and then to the OB floor. The went to the nursery. No complications occurred throughout her hospital stay. She was afebrile. Vital signs are stable. She tolerated her diet well and ambulated quite well. Her incision healed well with no erythema or drainage noted. Her hemoglobin did drop from 11.8 on admission to 9.9. She was given iron. No other complications occurred throughout her hospital stay. She was discharged to home on postop day #2. LABORATORY AND DIAGNOSTIC STUDIES: On 02/16/2017, WBC 9.9, hemoglobin 11.8, hematocrit 35.2, platelet count 173. On 02/18/2017, WBC 10.4, hemoglobin 9.9, hematocrit 30.9, platelet count 174,000. DISCHARGE INSTRUCTIONS: 1. Discharged to home. 2. Follow up with Dr. Tovar within the next week for her to see the and also wound care. 3. Follow up for 6-week check. 4. No douching, tampons, intercourse for 6 weeks. 5. Discharge instructions including activity, followup, medications, diet, and wound care were discussed with the patient. She understands these and is willing to abide by these. 6. Motrin 800 mg 1 tablet t.i.d. p.r.n. for pain. 7. Percocet 325/5 mg 1 tablet t.i.d. p.r.n. for pain. 8. Breast pump prescription given to the patient. DISCHARGE DIAGNOSES: 1. A 40 and 2/7-week intrauterine . 2. Early labor. 3. Pitocin augmentation. 4. Group B streptococcus vaginal culture positive with penicillin G IV given for prophylaxis. 5. Artificial rupture of membranes. 6. Exogenous obesity. 7. Arrest of descent. 8. Arrest of dilatation. 9. Primary low transverse section via Pfannenstiel skin incision. 10.Delivery of a macrosomic viable male infant weighing 9 pounds 20 inches long with scores of 9 at 1 minute, 9 at 5 minutes. 11.Spinal anesthesia with Duramorph. 12.Acute anemia secondary to blood loss. [facility] /[id number]
--- NOTE | 2017-02-20 11:00 | DISCH ---
ADMIT DIAGNOSES: 1. Intrauterine 40 and 1/7 weeks. 2. Early labor. 3. Exogenous obesity. 4. Group B streptococcus positive, antibiotics given. 5. 1, para 0. DISCHARGE DIAGNOSES: 1. Intrauterine 40 and 1/7 weeks, delivered at 40 and 2/7 weeks. 2. Early labor. 3. Exogenous obesity. 4. Group B streptococcus positive, antibiotics given. 5. 1, para 0. 6. Pitocin augmentation. 7. Artificial rupture of membranes. 8. Arrest of descent. 9. Arrest of dilation. 10.Delivery of macrosomic viable male weighing 9 pounds, 20 inches long with scores of 9 at 1 minute and 9 at 5 minutes. PROCEDURE PERFORMED: Please see progress note, did undergo a primary low transverse via Pfannenstiel-type skin incision with Dr. Jhaveri and Dr. Hernandez as assist under spinal anesthesia. Please see delivery note for further details. HISTORY OF PRESENT ILLNESS: Please see H and P. SUMMARY OF HOSPITAL COURSE: The patient was admitted on the above date with the above diagnoses, underwent above procedures listed under discharge diagnoses, had arrest of descent and dilation, subsequently underwent primary low transverse yielding a male as noted above. Postoperative day #1, the patient was doing well. Please see progress note. Postoperative day #2, date of discharge, please see progress notes done by Dr. Jhaveri. DISCHARGE LABORATORIES: On 02/18/2017, reveals a white cell count of 10.4, hemoglobin 9.9, and platelets 174. CONDITION ON DISCHARGE COMPARED TO CONDITION ON ADMISSION: Improved. DISCHARGE INSTRUCTIONS: 1. Diet: As tolerated. 2. Activity: No lifting more than 20 pounds. No sit-ups or straining, and pelvic rest for the next 6 weeks with immediate return to fertility discussed with the patient. 3. Reasons to return or go the emergency room were discussed with the patient in detail including, but not limited to, temperature greater than 100.4, foul-smelling discharge, red hot tender breasts, or increased vaginal bleeding or increasing pain, drainage, or redness around the incision. DISCHARGE MEDICATIONS: 1. [id number] Tylenol and ibuprofen for pain. Dr. Jhaveri did write: 1. Ibuprofen 800 mg t.i.d. p.r.n. for pain. 2. Percocet 5/325, 1 tab every 6 to 8 hours p.r.n., #40, no refills. 3. Breast pump script was also written. I did discuss with mother the importance of followup and ramifications of not doing so. FOLLOWUP: For her in 2 days at the clinic with her baby for incision check either with Dr. Hernandez or Dr. Tovar. The patient understands and agrees with the above treatment plan. [facility] /[id number] MTDD
== END 2017-02-19 15:15 | disposition home or self-care (01) | DRG 765 ==
LOC: DL.OBCHECK 10:31 → DL.OB 15:44 → DL.MS 02-17 07:52 → INTOOBSV 02-17 08:25 → OBSVTOIN 02-17 08:25 → DL.OB 02-19 15:10 → UNDODISOB 02-19 15:15
PROVIDERS: ADMIT Family Medicine; ATTEND Family Medicine
PROC: 10D00Z1 Extraction of Products of Conception, Low, Open Approach (ICD-10-PCS; principal; 2017-02-17)
PROC: 10907ZC Drainage of Amniotic Fluid, Therapeutic from Products of Conception, Via Natural or Artificial Opening (ICD-10-PCS; 2017-02-17)
PROC: 00HU33Z Insertion of Infusion Device into Spinal Canal, Percutaneous Approach (ICD-10-PCS; 2017-02-17)
PROC: 3E0R3BZ Introduction of Anesthetic Agent into Spinal Canal, Percutaneous Approach (ICD-10-PCS; 2017-02-17)
DX: O99.214 Obesity complicating childbirth (principal); Z68.42 Body mass index [BMI] 45.0-49.9, adult; Z37.0 Single live birth; E66.09 Other obesity due to excess calories; Z3A.40 40 weeks gestation of pregnancy; O99.824 Streptococcus B carrier state complicating childbirth; O90.81 Anemia of the puerperium; D64.89 Other specified anemias; O62.0 Primary inadequate contractions; O36.63X0 Maternal care for excessive fetal growth, third trimester, not applicable or unspecified
CPT/HCPCS: 36415; 51702; 59025; 85027; 86850; 86900; 86901; 90471; 90707; 94010; A9270-GY; J0171; J0690; J1885; J2274; J2540; J2590; J3010; J7050; J7120

== ENCOUNTER 2017-05-29 17:25 | Emergency (ER) | payer MEDICAID ==
[2017-05-29 17:49] VITALS: BP 120/82
[2017-05-29] MEDS ORDERED: Silver Sulfadiazine 1% Crm 50 GM Tube TOP ONE (17:51)
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
== END 2017-05-29 18:23 | disposition home or self-care (01) ==
LOC: DL.ED 17:25
DX: T23.111A Burn of first degree of right thumb (nail), initial encounter (principal); T20.10XA Burn of first degree of head, face, and neck, unspecified site, initial encounter; T20.17XA Burn of first degree of neck, initial encounter; X10.2XXA Contact with fats and cooking oils, initial encounter; Z79.899 Other long term (current) drug therapy
CPT/HCPCS: 16000; 99283; A9270

== ENCOUNTER 2018-07-03 12:25 | Emergency (ER) | payer MEDICAID ==
[2018-07-03 12:34] VITALS: BP 124/85
--- NOTE | 2018-07-03 12:53 | EDM.PDOC ---
ED HPI GENERAL MEDICAL PROBLEM - General Chief Complaint: Lower Extremity Injury/Pain Stated Complaint: ANKLE IS INJURED [id number] Time Seen by Provider: 07/03/18 12:35 Source of Information: Reports: Patient History Limitations: Reports: No Limitations - History of Present Illness INITIAL COMMENTS - FREE TEXT/NARRATIVE: This 32 yo female patient reports to the ED with right lateral ankle pain. The patient reports she stepped on a cracked sidewalk last week. The patient has noticed increased pain especially today as she was walking on some steps. The patient reports previous injuries to her ankles. The patient reports she attempted to get an appointment in the clinic, but could not get an appointment until late today. Duration: Day(s):, Getting Worse Location: Reports: Lower Extremity, Right Quality: Reports: Other Severity: Moderate Improves with: Reports: None Worsens with: Reports: None Context: Reports: Other Associated Symptoms: Reports: No Other Symptoms Right Foot Pain Score (Numeric/FACES): 2 - Related Data Allergies Allergy/AdvReac Type Severity Reaction Status Date / Time No Known Allergies Allergy Verified 07/03/18 12:33 Home Meds: Home Meds . 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, 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 History: Reports: Fracture Other 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 History: ankle broken twice Neurological History: Reports: None Psychiatric History: Reports: Anxiety, Bipolar, Depression, OCD, PTSD, Suicidal Ideation Other Psychiatric History: borderline personality disorder Endocrine/Metabolic History: Reports: Obesity/BMI 30+ Hematologic History: Reports: None Immunologic History: Reports: None Oncologic (Cancer) History: Reports: None Dermatologic History: Reports: None, Other (See Below) Other Dermatologic History: multiple tattoos - Infectious Disease History Infectious Disease History: Reports: Chicken Pox Other Infectious Disease History: "staph infection" - Past Surgical History Head Surgeries/Procedures: Reports: None HEENT Surgical History: Reports: Oral Surgery Other HEENT Surgeries/Procedures: wisdom teeth Endocrine Surgical History: Reports: None Social & Family History - Family History Family Medical History: Noncontributory - Tobacco Use Smoking Status *Q: Never Smoker Second Hand Smoke Exposure: No - Caffeine Use Caffeine Use: Reports: Coffee, Soda Caffeine Use Comment: rare - Recreational Drug Use Recreational Drug Use: No - Living Situation & Occupation Living situation: Reports: with Significant Other Occupation: Employed Review of Systems - Review of Systems Review Of Systems: ROS reveals no pertinent complaints other than HPI. ED EXAM, GENERAL - Physical Exam Exam: See Below Exam Limited By: No Limitations General Appearance: Alert, WD/WN, Mild Distress, Obese Eye Exam: Bilateral Eye: EOMI, Normal Inspection, PERRL Ears: Normal External Exam, Normal Canal, Hearing Grossly Normal, Normal TMs Nose: Normal Inspection, Normal Mucosa, No Blood Throat/Mouth: Normal Inspection, Normal Lips, Normal Teeth, Normal Gums, Normal Oropharynx, Normal Voice, No Airway Compromise Head: Atraumatic, Normocephalic Neck: Normal Inspection, Supple, Non-Tender, Full Range of Motion Respiratory/Chest: No Respiratory Distress, Lungs Clear, Normal Breath Sounds, No Accessory Muscle Use, Chest Non-Tender Cardiovascular: Normal Peripheral Pulses, Regular Rate, Rhythm, No Edema, No Gallop, No JVD, No Murmur, No Rub GI/Abdominal: Normal Bowel Sounds, Soft, Non-Tender, No Organomegaly, No Distention, No Abnormal Bruit, No Mass (Female) Exam: Deferred Rectal (Female) Exam: Deferred Back Exam: Normal Inspection, Full Range of Motion, NT Extremities: Joint Swelling (right lateral ankle pain) Neurological: Alert, Oriented, CN II-XII Intact, Normal Cognition, Normal Gait, Normal Reflexes, No Motor/Sensory Deficits Psychiatric: Normal Affect, Normal Mood Skin Exam: Warm, Dry, Intact, Normal Color, No Rash Lymphatic: No Adenopathy Course - Vital Signs Last Recorded V/S: Last Vital Signs Temp 36.4 C 07/03/18 12:29 Pulse 86 07/03/18 12:29 Resp 16 07/03/18 12:29 BP 124/85 07/03/18 12:29 Pulse Ox 99 07/03/18 12:29 - Orders/Labs/Meds Orders: Active Orders 24 hr Category Date Time Status Ankle Min 3V Rt [CR] Urgent Exams 07/03/18 12:43 Ordered Departure - Departure Time of Disposition: 13:42 Disposition: Home, Self-Care 01 Condition: Good Clinical Impression: Right ankle sprain Qualifiers: Encounter type: initial encounter Involved ligament of ankle: unspecified ligament Qualified Code(s): S93.401A - Sprain of unspecified ligament of right ankle, initial encounter - Discharge Information *PRESCRIPTION DRUG MONITORING PROGRAM REVIEWED*: Not Applicable *COPY OF PRESCRIPTION DRUG MONITORING REPORT IN PATIENT CARLENE: Not Applicable Instructions: Ankle Sprain, [id number] Forms: ED Department Discharge Care Plan Goals: The patient was advised of the examination and x-ray results during the visit. The patient was placed in an ankle support while in the ED. The patient was encouraged to rest, ice and elevate the extremity. The patient may take Tylenol or ibuprofen as directed for temporary symptom relief. If the patient has any additional symptoms or concerns, the patient should either return to the emergency department or visit his primary care facility. - My Orders Last 24 Hours: My Active Orders 07/03/18 12:43 Ankle Min 3V Rt [CR] Urgent - Assessment/Plan Last 24 Hours: My Active Orders 07/03/18 12:43 Ankle Min 3V Rt [CR] Urgent
== END 2018-07-03 13:47 | disposition home or self-care (01) ==
LOC: DL.ED 12:25
DX: S93.401A Sprain of unspecified ligament of right ankle, initial encounter (principal); X58.XXXA Exposure to other specified factors, initial encounter
CPT/HCPCS: 73610-RT; 99283-25

== ENCOUNTER 2018-07-16 07:46 | Emergency (ER) | payer MEDICAID ==
[2018-07-16 07:55] VITALS: BP 125/78
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
[2018-07-16] MEDS ORDERED: HYDROmorphone 1 MG/ML Syringe IVPUSH ONE (08:09)
== END 2018-07-16 08:26 | disposition home or self-care (01) ==
LOC: DL.ED 07:46
DX: S93.401D Sprain of unspecified ligament of right ankle, subsequent encounter (principal); W10.1XXD Fall (on)(from) sidewalk curb, subsequent encounter
CPT/HCPCS: 73610-RT; 99283-25

== ENCOUNTER 2021-03-13 17:32 | Emergency (ER) | payer MEDICAID ==
[2021-03-13] MEDS ORDERED: Ondansetron 4 MG Tab.DIS PO ONE (21:37)
[2021-03-13] MEDS ORDERED: Acetaminophen 500 MG Tab PO ONE (21:38)
[2021-03-13] MEDS ORDERED: HYDROmorphone 1 MG/ML Syringe IVPUSH ONE (23:06)
[2021-03-14] LABS: ANION GAP 10.7 mEq/L (7-13); CHLORIDE,CL 104 mmol/L (98-107); SODIUM,NA 138 mmol/L (136-145)
[2021-03-14 00:26] LABS: AMPHETAMINES,URINE NEGATIVE (NEGATIVE); BARBITURATES,URINE NEGATIVE (NEGATIVE); BENZODIAZEPINE,URINE NEGATIVE (NEGATIVE); MDMA (ECSTASY), URINE NEGATIVE (NEGATIVE); METHADONE,URINE NEGATIVE (NEGATIVE); METHAMPHETAMINES,URINE NEGATIVE (NEGATIVE); OPIATES,URINE POSITIVE (NEGATIVE); OXYCODONE,URINE NEGATIVE (NEGATIVE); PHENCYCLIDINE,URINE NEGATIVE (NEGATIVE); TCA,URINE NEGATIVE (NEGATIVE)
[2021-03-14] MEDS ORDERED: Iopamidol 612 MG/ML 100 ML Bottle IVPUSH ONE (00:32)
[2021-03-14] MEDS ORDERED: Sodium Chloride 0.9% 1,000 ML IV ONE (01:37)
[2021-03-14] MEDS ORDERED: Phenazopyridine 95 MG Tab PO ONE (01:37)
[2021-03-14] MEDS ORDERED: Ketorolac 30 MG/ML SDV IVPUSH ONE (01:37)
[2021-03-14] MEDS ORDERED: Ondansetron 4 MG/2 ML SDV IVPUSH ONE (01:38)
[2021-03-14 02:12] VITALS: PULSE 72
[2021-03-14 03:02] VITALS: BP 142/100
== END 2021-03-14 02:48 | disposition home or self-care (01) ==
LOC: DL.ED 17:32
DX: N13.2 Hydronephrosis with renal and ureteral calculous obstruction (principal); N83.201 Unspecified ovarian cyst, right side; K76.9 Liver disease, unspecified; E66.9 Obesity, unspecified; Z68.43 Body mass index [BMI] 50.0-59.9, adult
CPT/HCPCS: 36415; 74177; 80053; 80305; 80307; 81001; 82150; 83605; 83690; 83735; 84703; 85025; 86140; 96374; 96375; 99284; 99285; A9270; J1170; J1885; J2405; J7030; Q9967

== ENCOUNTER 2021-04-18 18:46 | Emergency (ER) | payer BC ==
[2021-04-18] MEDS ORDERED: Lidocaine 1% 30 ML SDV INJECT ONE (18:57)
[2021-04-18] MEDS ORDERED: Bacitracin Oint 1 GM U/D Packet TOP ONE (18:57)
[2021-04-18 19:01] VITALS: BP 135/98; PULSE 92
== END 2021-04-18 19:40 | disposition home or self-care (01) ==
LOC: DL.ED 18:46
DX: S61.210A Laceration without foreign body of right index finger without damage to nail, initial encounter (principal); E66.9 Obesity, unspecified; Z68.43 Body mass index [BMI] 50.0-59.9, adult; W26.8XXA Contact with other sharp object(s), not elsewhere classified, initial encounter
CPT/HCPCS: 12001; 99282-25

== ENCOUNTER 2021-04-20 23:33 | Emergency (ER) | payer BC ==
[2021-04-20 23:47] VITALS: BP 145/95; PULSE 72
[2021-04-20] MEDS ORDERED: Bacitracin Oint 1 GM U/D Packet TOP ONE (23:56)
== END 2021-04-21 00:10 | disposition home or self-care (01) ==
LOC: DL.ED 23:33
DX: T81.40XA Infection following a procedure, unspecified, initial encounter (principal); E66.9 Obesity, unspecified; Z68.43 Body mass index [BMI] 50.0-59.9, adult
CPT/HCPCS: 99282

== ENCOUNTER 2021-12-21 01:20 | Emergency (ER) | payer BC, MEDICAID | END 2021-12-21 15:13 | disposition home or self-care (01) | LOC: DL.ED 01:20 | DX: S93.601A Unspecified sprain of right foot, initial encounter (principal); M25.774 Osteophyte, right foot; E66.9 Obesity, unspecified; W10.9XXA Fall (on) (from) unspecified stairs and steps, initial encounter | CPT/HCPCS: 73630-RT; 99283 ==

== ENCOUNTER 2022-06-12 18:10 | Emergency (ER) | payer OTHER, MEDICAID ==
[2022-06-12] MEDS ORDERED: traMADol 50 MG Tab PO ONE (18:11)
[2022-06-12 18:25] VITALS: BP 117/70; PULSE 68
[2022-06-12] MEDS ORDERED: Ketorolac 30 MG/ML SDV IM ONE (19:36)
[2022-06-12] MEDS ORDERED: Orphenadrine 60 MG/2 ML Inj IM ONE (19:36)
[2022-06-12] MEDS ORDERED: traMADol 50 MG Tab ONE (19:44)
== END 2022-06-12 20:01 | disposition home or self-care (01) ==
LOC: DL.ED 18:10
DX: S50.02XA Contusion of left elbow, initial encounter (principal); S80.02XA Contusion of left knee, initial encounter; S20.219A Contusion of unspecified front wall of thorax, initial encounter; M25.552 Pain in left hip; E66.9 Obesity, unspecified; Z68.43 Body mass index [BMI] 50.0-59.9, adult; V49.9XXA Car occupant (driver) (passenger) injured in unspecified traffic accident, initial encounter; Y92.410 Unspecified street and highway as the place of occurrence of the external cause
CPT/HCPCS: 70450; 71101-LT; 72125; 73080-LT; 96372; 99283; 99284; A9270-GY; J1885; J2360

== ENCOUNTER 2022-11-11 11:59 | Emergency (ER) | payer MEDICAID ==
[2022-11-11] MEDS ORDERED: Sodium Chloride 0.9% 1,000 ML IV ONE ×2 (12:11→12:12)
[2022-11-11] MEDS ORDERED: Ondansetron 4 MG/2 ML SDV IVPUSH ONE (12:11)
[2022-11-11] MEDS ORDERED: Sodium Chloride 0.9% 10 ML Syringe FLUSH PRN (12:11)
[2022-11-11 12:14] VITALS: BP 134/80; PULSE 82
[2022-11-11 12:27] LABS: BASOPHILS PERCENT AUTO 0.2 % (0.0-1.0); EOSINOPHILS PERCENT AUTO 0.8 % (1.0-3.0); HEMATOCRIT 42.8 % (37.0-47.0); HEMOGLOBIN 14.5 g/dL (12.0-16.0); MEAN CORPUSCULAR HEMOGLOBIN 30.1 pg (27.0-34.0); MEAN CORPUSCULAR HGB CONC 33.9 g/dL (33.0-35.0); MONOCYTES PERCENT AUTO 5.3 % (2-8); NEUTROPHILS PERCENT AUTO 50.7 % (42.2-75.2); PLATELET COUNT,PLT 234 10^3/uL (150-450); RED BLOOD CELL COUNT 4.81 10^6/uL (4.2-5.4); WHITE BLOOD CELL COUNT,WBC 6.5 10^3/uL (5.0-10.0)
[2022-11-11 12:38] LABS: A/G RATIO 1.1; ALBUMIN 3.7 g/dL (3.4-5.0); ANION GAP 11.2 mEq/L (7-13); BILIRUBIN TOTAL 0.4 mg/dL (0.2-1.0); BUN/CREATININE RATIO 9.7 (No establ ref range); CALCIUM 9.1 mg/dL (8.5-10.1); CREATININE 1.03 mg/dL (0.55-1.02); EST CRCL DRUG DOSING (CG) 75.44 mL/min; POTASSIUM,K 3.2 mmol/L (3.5-5.1); PROTEIN TOTAL,TP 7.1 g/dL (6.4-8.2)
[2022-11-11] MEDS ORDERED: Potassium Chloride 10 MEQ Tab.ER PO ONE (12:48)
== END 2022-11-11 13:38 | disposition home or self-care (01) ==
LOC: DL.ED 11:59
DX: K52.9 Noninfective gastroenteritis and colitis, unspecified (principal); E86.0 Dehydration; E66.9 Obesity, unspecified; Z68.42 Body mass index [BMI] 45.0-49.9, adult
CPT/HCPCS: 36415; 80053; 85025; 96361; 96374; 99283; 99284; A9270; J2405; J7030; J3490

== ENCOUNTER 2023-09-29 17:26 | Emergency (ER) | payer MEDICAID, OTHER ==
[2023-09-29 17:37] VITALS: BP 137/86; PULSE 76
[2023-09-29] MEDS: Metoclopramide 10 MG Tab PO ONE (18:46)
[2023-09-29] MEDS: Acetaminophen 500 MG Tab PO ONE (18:46)
== END 2023-09-29 20:22 | disposition home or self-care (01) ==
LOC: DL.ED 17:26
DX: S06.0X0A Concussion without loss of consciousness, initial encounter (principal); E66.9 Obesity, unspecified; Z86.16 Personal history of COVID-19; Z90.710 Acquired absence of both cervix and uterus; Z79.899 Other long term (current) drug therapy; Z68.42 Body mass index [BMI] 45.0-49.9, adult; W22.8XXA Striking against or struck by other objects, initial encounter
CPT/HCPCS: 70450; 99285; A9270